=== PATIENT | female | born 1990 | race Two or more races ===

== ENCOUNTER 2022-04-24 13:09 | Outpatient (CLI) | payer OTHER, SELFPAY ==
[2022-04-30 20:54] LABS: Progesterone 17.4 ng/mL (***)
== END 2022-04-24 13:10 | disposition home or self-care (01) ==
PROVIDERS: PCP Advanced Practice Midwife; Visit Provider Advanced Practice Midwife
DX: O20.0 Threatened abortion (principal); Z3A.00 Weeks of gestation of pregnancy not specified
CPT/HCPCS: 36415; 84144; 84702; 86850; 86900; 86901

== ENCOUNTER 2022-04-26 11:49 | Outpatient (CLI) | payer OTHER, SELFPAY | END 2022-04-26 11:50 | disposition home or self-care (01) | LOC: ANHLAB 11:51 | PROVIDERS: PCP Advanced Practice Midwife; Visit Provider Obstetrics & Gynecology | DX: O02.1 Missed abortion (principal) | CPT/HCPCS: 36415; 84702 ==

== ENCOUNTER 2022-04-27 12:39 | Emergency (ER) | payer OTHER, SELFPAY ==
--- NOTE | ~2022-04-27 | US_ITS ---
US OB <=14 wk fetus w TV DATE: 04/27/2022 18:24 INDICATION: Abdominal pain. Exclude ectopic . TECHNIQUE: Real-time imaging and Doppler analysis COMPARISON: None FINDINGS: The uterus measures approximately 8.6 cm height, up to 5.9 cm AP dimension. 7.8 mm uterine cervical nabothian cyst. Approximately 6 x 12.6 x 43 mm fluid collection within the endometrial cavity. There is a normally shaped intrauterine gestational sac measures 2.70 cm, consistent with 5 weeks 3 d ays +/- 3 days estimated gestational age with CLARK of 12/25/2022. Right ovarian approximately 2.7 x 3.8 x 2.2 cm complicated cyst. Left ovary measures 1.8 x 2.1 x 1.1 cm. IMPRESSION: Early intrauterine gestational sac is suggested, 5 weeks 3 days +/- 3 days estimated gest ational age based on sac size. No definite pole or yolk sac are noted Some free fluid is identified within the endometrial cavity Right ovarian cyst Short-term follow-up ultrasound imaging is recommended. Reviewed, dictated and finalized at [facility]. Reviewed, dictated and finalized at [facility]. [facility]SING [facility]ACT[facility] IMPRESSION: Early intrauterine gestational sac is suggested, 5 weeks 3 days +/- 3 days estimated gestational age based on sac size. No definite pole or yolk sac are noted Some free fluid is identified within the endometrial cavity Right ovarian cyst Short-term follow-up ultrasound imaging is recommended.
[2022-04-27 12:41] VITALS: BP 124/73; PULSE 111; RESP 15; TEMP 36.8; O2SAT 100
--- NOTE | 2022-04-27 15:45 | ED.ABDPAIN ---
HPI - Abdominal Pain General Chief Complaint: Abdominal Pain Stated Complaint: abdominal pain, sore throat, Time Seen by Provider: 04/27/22 15:09 Source: patient and family Mode of arrival: ambulatory Limitations: no limitations History of Present Illness HPI narrative: 32 years old white female presents with sore throat that started last night also mid abdominal pain started yesterday. She denies any fever, chills, nausea, vomiting, vaginal bleeding or discharge patient is telling me that she is 4 weeks , she follow-up with [facility]. Patient is 3 para 2 0. Patient also complaining of lower back pain lately. Patient had Tylenol prior to arrival to the emergency room. Related Data Allergies Allergy/AdvReac Type Severity Reaction Status Date / Time No Known Allergies Allergy Verified 04/27/22 15:59 Review of Systems Review of Systems: All systems reviewed & are unremarkable except as noted in HPI and below Exam Narrative: General appearance: Well-developed, well-nourished Skin: Normal color Head: Normocephalic, nontraumatic Eyes: Clear conjunctiva ENT: Oropharynx normal, ears normal, nose normal Neck: Supple, nontender Chest and respiratory: Airway patent, no respiratory distress, no accessory muscle use Heart: Regular rate/rhythm Abdomen: Soft, diffuse abdominal tenderness, left flank tenderness,, no organomegaly, quiet bowel sounds Vascular: Normal peripheral pulses, normal capillary refill. Musculoskeletal: Normal range of motion, nontender back Neurologic: Alert and oriented ?3, SURVEYING TEACHER is normal as tested, no gross motor deficit Course Vital Signs Vital signs: Vital Signs Temperature 36.8 C 04/27/22 12:41 Pulse Rate 111 H 04/27/22 12:41 Respiratory Rate 15 04/27/22 12:41 Blood Pressure 124/73 04/27/22 12:41 Pulse Oximetry 100 04/27/22 12:41 Oxygen Delivery Room Air 04/27/22 12:41 Temperature 36.8 C 04/27/22 12:41 Pulse Rate 113 H 04/27/22 15:56 Respiratory Rate 16 04/27/22 15:56 Blood Pressure 126/83 04/27/22 15:56 Pulse Oximetry 100 04/27/22 15:56 Oxygen Delivery Room Air 04/27/22 12:41 MDM - Abdominal Pain Differential Diagnosis Differential diagnosis: Likely abdominal pain, acute appendicitis, calculus of kidney, constipation, pancreatitis and other ( related symptoms) Lab Data Result diagrams: 04/27/22 15:58 04/27/22 15:58 Labs: Lab Results 04/27/22 04/27/22 04/27/22 Range/Units 15:58 15:58 16:04 WBC 6.4 (4.5-10.0) K/mm3 RBC 4.61 (4.2-5.4) M/mm3 Hgb 13.0 (12.0-15.0) g/dL Hct 39.7 (37.0-47.0) % MCV 86.1 (80-100) fl MCH 28.2 (26-34) pg MCHC 32.7 (32-36) g/dl RDW 14.7 H (11.5-14.5) % Plt Count 139 L (150-375) k/mm3 MPV 12.3 H (7.4-10.4) fl Immature Gran % (Auto) 0.2 (0-0.5) % Neut % (Auto) 71.9 (45.5-73.1) % Lymph % (Auto) 18.9 (18.3-44.2) % [place] % (Auto) 8.2 (2.6-8.5) % Eos % (Auto) 0.3 (0-4.4) % Baso % (Auto) 0.5 (0.2-1.2) % Lymph # (Auto) 1.22 (0.9-3.2) K/mm3 [place] # (Auto) 0.5 (0.1-0.6) K/mm3 Eos # (Auto) 0.0 (0-0.3) K/mm3 Baso # (Auto) 0.0 (0.0-0.1) K/mm3 Abs Immat Gran (auto) 0.01 (0.00-0.031) K/mm3 Absolute Neuts (auto) 4.6 (1.3-6.7) K/mm3 Absolute Nucleated RBC 0.0 (0.0-0.012) K/mm3 Nucleated RBC % 0.0 (0.0-0.2) % Sodium 138 (137-145) mmol/L Potassium 3.4 (3.4-5.0) mmol/L Chloride 103 (98-107) mmol/L Carbon Dioxide 21 L (22-30) mmol/L Anion Gap 14 (8-16) mmol/L BUN 6 L (7-17) mg/dL Creatinine 0.50 L (0.7-1.0) mg/dL Estim Crea
[2022-04-27 15:56] VITALS: BP 126/83; PULSE 113; RESP 16; O2SAT 100
[2022-04-27] MEDS: SODIUM CHLORIDE 0.9% IV 1,000 ML 999 ML IV CONT (16:00)
[2022-04-27] MEDS: ONDANSETRON INJ 4 MG/2 ML VIAL IV PUSH (16:00)
[2022-04-27] MEDS: MORPHINE SULFATE (*CRX) 4 MG/ML INJ IV PUSH (16:01)
[2022-04-27 16:09] LABS: Basophils Percent Auto 0.5 % (0.2-1.2); Eosinophils Percent Auto 0.3 % (0-4.4); Hematocrit 39.7 % (37.0-47.0); Immature Granulocyte Absolute 0.01 K/mm3 (0.00-0.031); Immature Granulocyte Percent A 0.2 % (0-0.5); Lymphocytes Absolute Auto 1.22 K/mm3 (0.9-3.2); Lymphocytes Percent Auto 18.9 % (18.3-44.2); Mean Corpuscular HGB Conc 32.7 g/dl (32-36); Mean Corpuscular Hemoglobin 28.2 pg (26-34); Mean Corpuscular Volume 86.1 fl (80-100); Mean Platelet Volume 12.3 fl (7.4-10.4); Monocytes Absolute Auto 0.5 K/mm3 (0.1-0.6); Monocytes Percent Auto 8.2 % (2.6-8.5); Neutrophils Absolute Auto 4.6 K/mm3 (1.3-6.7); Neutrophils Percent Auto 71.9 % (45.5-73.1); Platelet Count Result 139 k/mm3 (150-375); Red Blood Count 4.61 M/mm3 (4.2-5.4); Red Cell Distribution Width 14.7 % (11.5-14.5); White Blood Count 6.4 K/mm3 (4.5-10.0)
[2022-04-27 16:20] LABS: Alanine Aminotransferase 21 U/L (6-35); Albumin Level 4.7 g/dL (3.5-5.1); Alkaline Phosphatase 53 U/L (38-126); Anion Gap 14 mmol/L (8-16); Aspartate Amino Transferase 25 U/L (14-36); Bilirubin,Total 0.5 mg/dL (0.2-1.3); Blood Urea Nitrogen 6 mg/dL (7-17); Calcium 8.8 mg/dL (8.4-10.2); Carbon Dioxide 21 mmol/L (22-30); Chloride 103 mmol/L (98-107); Estimated CRCL calculation 123 ml/min; Estimated Glomerular Filt Rate > 60; Glucose 89 mg/dL (65-110); Lipase 18 U/L (23-300); Potassium 3.4 mmol/L (3.4-5.0); Sodium 138 mmol/L (137-145)
[2022-04-27 16:31] LABS: Appearance Urine Slightly Cloudy (Clear); Bilirubin Urine 1+ (Negative); Blood Urine 2+ (Negative); Glucose Urine UA Negative (Negative); Ketones Urine 1+ mg/dL (Negative); Leukocyte Esterase Ur Negative LEU/UL (Negative); Nitrate Urine Negative (Negative); Protein Urine Negative (Negative); Specific Grav Ur >= 1.030 (1.001-1.035); Urobilinogen Urine 0.2 mg/dL (<2.0); pH Urine 5.5 (5.0-9.0)
[2022-04-27 16:34] LABS: Bacteria Urine Trace /hpf; Mucus Urine Heavy /lpf; Squamous Epithelial Cell Urine Many /hpf (Few); WBC Urine 0-3 /hpf
[2022-04-27 16:35] LABS: Add Urine Microscopic? YES; Color Urine Dark Yellow (Yellow)
[2022-04-27 16:46] LABS: Influenza A QL RT-PCR Negative (Negative); Influenza B QL RT-PCR Negative (Negative); RSV RNA, RT-PCR Negative (Negative); SARS-CoV-2 RNA PCR Negative
[2022-04-27 17:00] LABS: Monoscreen Negative (Negative); Negative Monotest Control Negative (Negative); Positive Monotest Control Positive (Positive)
[2022-04-27 17:01] VITALS: BP 118/81; PULSE 109; RESP 20; O2SAT 100
[2022-04-27 17:31] VITALS: BP 110/79; PULSE 106; RESP 21; O2SAT 100
[2022-04-27 17:46] VITALS: BP 107/74; PULSE 108; RESP 20; O2SAT 100
[2022-04-27 19:25] VITALS: BP 126/80; PULSE 73; RESP 16; TEMP 36.8; O2SAT 100
== END 2022-04-27 19:27 | disposition home or self-care (01) ==
PROVIDERS: Emergency Provider Emergency Medicine; PCP Advanced Practice Midwife
DX: O26.891 Other specified pregnancy related conditions, first trimester (principal); R10.9 Unspecified abdominal pain; O99.511 Diseases of the respiratory system complicating pregnancy, first trimester; J06.9 Acute upper respiratory infection, unspecified; Z20.822 Contact with and (suspected) exposure to COVID-19; Z3A.11 11 weeks gestation of pregnancy
CPT/HCPCS: 36415; 76801; 76817; 80053; 81001; 83690; 85025; 86308; 87637; 87880; 96361; 96374; 96375; 99284; J2270; J2405; J7030

== ENCOUNTER 2024-12-10 09:26 | Emergency (ER) | payer OTHER, SELFPAY ==
--- NOTE | ~2024-12-10 | US_ITS ---
EXAMINATION: US right upper quadrant DATE: 12/10/2024 11:13 INDICATION: Abdominal pain TECHNIQUE: Multiple grayscale and Doppler ultrasound images of the abdomen were obtained. COMPARISON: None FINDINGS: The pancreatic head and body are normal in appearance. The pancreatic tail is not visualized. Liver has normal echogenicity and contour, with a smooth surface. No liver lesion identified. No intrahepat ic biliary duct dilation suspected. Portal venous flow was seen in the hepatopetal, normal direction and has normal Doppler waveform. Multiple echogenic and shadowing gallstones within the otherwise nor mal-appearing gallbladder with no abnormal dilation or wall thickening. Sonographic Snowden sign was r eported as negative by the wing coverer.Common bile duct measures 4 mm diameter which is normal. /Port ions of the right kidney demonstrates normal echogenicity and contour with no hydronephrosis. The vis ualized proximal inferior vena cava and aorta are normal. IMPRESSION: 1. Cholelithiasis without findings of biliary obstruction or acute cholecystitis. Reviewed, dictated and finalized at location [facility]. IMPRESSION: 1. Cholelithiasis without findings of biliary obstruction or acute cholecystiti s.
[2024-12-10 09:39] VITALS: BP 152/95; PULSE 90; RESP 18; TEMP 36.4; O2SAT 100
[2024-12-10 10:47] VITALS: BP 102/83; O2SAT 99
--- NOTE | 2024-12-10 10:54 | ED.ABDPAIN ---
HPI - Abdominal Pain General Chief Complaint: Abdominal Pain Stated Complaint: ABD Pain Time Seen by Provider: 12/10/24 10:15 History of Present Illness HPI narrative: Patient is a 34-year-old female who presents ER with abdominal pain. Began over last day. Epigastric and radiates to her back both sides. Mild nausea but no vomiting. No dysuria or urinary frequency. No vaginal bleeding or discharge. She is 1 month . Denies fevers chills or sweats. No alleviating factors and is unable to identify any aggravating factors. present and assisting with history. Related Data Allergies Allergy/AdvReac Type Severity Reaction Status Date / Time No Known Allergies Allergy Verified 12/10/24 09:49 Review of Systems Review of Systems: All systems reviewed & are unremarkable except as noted in HPI and below Constitutional: Constitutional: Reports no additional constitutional complaints ENT: Reports system reviewed and no additional complaints, except as documented Cardiovascular: Cardiovascular: Reports no additional cardiovascular complaints Respiratory: Respiratory: Reports no additional respiratory complaints Gastrointestinal: Gastrointestinal: Reports no additional gastrointestinal complaints Genitourinary: Genitourinary: Reports no additional female genitourinary complaints PMFSH Past Medical History Medical History (Updated 12/10/24 @ 12:30 by Sanchez Stewart MD) Healthy female adult Surgical History Surgical History (Updated 12/10/24 @ 10:55 by Sanchez Stewart MD) No pertinent past surgical history Exam Narrative: GENERAL: Uncomfortable-appearing, well-nourished, and in no acute distress. HEAD: Normocephalic, atraumatic. EYES: PERRL and EOMI. ENT: Mucous membranes moist. CHEST: Clear to auscultation. No respiratory distress. HEART: Regular rate and rhythm. Normal peripheral pulses. ABDOMEN: Soft, mild epigastric right upper quadrant discomfort without guarding, nondistended. EXTREMITIES: Normal range of motion. No edema. NEURO: Alert and oriented x3. PSYCH: Normal mood and affect. Course Course Emergency Course: Pain resolved with morphine. Imaging shows gallstones. Mild transaminitis. Recommend low-fat diet and follow up with General surgery outpatient for evaluation for cholecystectomy. Patient family verbalized understanding to treatment plan. Vital Signs Vital signs: Vital Signs Temperature 97.6 F 12/10/24 09:39 Pulse Rate 90 12/10/24 09:39 Respiratory Rate 18 12/10/24 09:39 Blood Pressure 152/95 H 12/10/24 09:39 Pulse Oximetry 100 12/10/24 09:39 Oxygen Delivery Room Air 12/10/24 09:39 Temperature 97.6 F 12/10/24 09:39 Pulse Rate 89 12/10/24 10:58 Respiratory Rate 18 12/10/24 10:58 Blood Pressure 102/83 12/10/24 10:58 Pulse Oximetry 100 12/10/24 10:58 Oxygen Delivery Room Air 12/10/24 09:39 MDM - Abdominal Pain Lab Data 12/10/24 10:53 12/10/24 10:53 Labs: Lab Results 12/10/24 12/10/24 12/10/24 Range/Units 10:36 10:53 10:57 WBC 9.5 (4.5-10.0) K/mm3 RBC 4.91 (4.2-5.4) M/mm3 Hgb 14.6 (12.0-15.0) g/dL Hct 46.0 (37.0-47.0) % MCV 93.7 (80-100) fl MCH 29.7 (26-34) pg MCHC 31.7 L (32-36) g/dl RDW 11.9 (11.5-14.5) % Plt Count 153 (150-375) k/mm3 MPV 12.1 H (7.4-10.4) fl Immature Gran % (Auto) 0.2 (0-0.5) % Neut % (Auto) 77.6 H (45.5-73.1) % Lymph % (Auto) 15.6 L (18.3-44.2) % [place] % (Auto) 5.8 (2.6-8.5) % Eos % (Auto) 0.4 (0-4.4) % Baso % (Auto) 0.4 (0.2-1.2) % Lymph # (Auto) 1.48 (0.9-3.2) K/mm3 [place] # (Auto) 0.6 (0.1-0.6) K/mm3 Eos # (Auto) 0.0 (0-0.3) K/mm3 Baso # (Auto) 0.0 (0.0-0.1) K/mm3 Abs Immat Gran (auto) 0.02 (0.00-0.031) K/mm3 Absolute Neuts (auto) 7.3 H (1.3-6.7) K/mm3 Absolute Nucleated RBC 0.000 (0.0-0.012) K/mm3 Nucleated RBC % 0.0 (0.0-0.2) % Sodium 141 (137-145) mmol/L Potassium 3.6 (3.4-5.0) mmol/L Chloride 109 H (98-107) mmol/L Carbon Dioxide 22 (22-30) mmol/L Anion Gap 10 (4-12) mmol/L BUN 12 D (7-17) mg/dL Creatinine 0.58 L (0.7-1.0) mg/dL Estim Creat Clear Calc 113 ml/min Estimated GFR > 60 (59 - ) Glucose 106 (65-110) mg/dL Calcium 9.0 (8.4-10.2) mg/dL Total Bilirubin 0.6 (0.2-1.3) mg/dL AST 198 H (14-36) U/L ALT 85 H (6-35) U/L Alkaline Phosphatase 89 (38-126) U/L Total Protein 7.3 (6.3-8.2) g/dL Albumin 4.2 (3.5-5.1) g/dL Lipase 29 (23-300) U/L Urine Color Yellow (Yellow) Urine Appearance Clear (Clear) Urine pH 6.0 (5.0-9.0) Ur Specific [place] 1.021 (1.001-1.035) Urine Protein Negative (Negative) mg/dL Urine Glucose (UA) Negative (Negative) mg/dL Urine Ketones Negative (Negative) mg/dL Ur Blood (Man) 1+ H (Negative) Urine Nitrate Negative (Negative) Urine Bilirubin Negative (Negative) Urine Urobilinogen 0.2 (<2.0) mg/dL Leukocyte Esterase Rfl 1+ H (Negative) CLIF/UL Urine RBC 6-10 H (0-2) /hpf Urine WBC 6-10 H (0-3) /hpf Ur Squamous Epith Cells None seen (Few) /hpf Urine Bacteria None seen /hpf Urine Casts 0-2 POC Urine HCG, Qual Negative (Negative) Imaging Data Radiologist's impression: ITS Impressions Upper Quadrant Ultrasound 12/10/24 11:14 IMPRESSION: 1. Cholelithiasis without findings of biliary obstruction or acute cholecystitis. Discharge Plan Discharge Clinical Impression: Cholelithiasis Patient Disposition: Home Condition: Stable Instructions: Gallstones (ED), Low Fat Diet (ED) Additional Instructions: Return to the emergency department if you develop severe abdominal pain, severe nausea and vomiting to the point where you are unable to keep down fluids, if you develop chest pain or difficulty breathing, blood in your stool, dizziness or fainting, or if you develop any other new or concerning symptoms as these could be signs of more serious medical illness. Try to stay well hydrated. Take Tylenol or ibuprofen for pain. Eat a low-fat diet. Follow up with General surgery. Patient Language: Other Prescriptions: New ondansetron 4 mg tablet,disintegrating 4 mg PO Q6H PRN (Reason: nausea and vomiting) Qty: 10 0RF Follow-up/Referrals: Cristel,Johanna Beckham CNM [Primary Care Provider] - Frantz Robertson DO [Physician] - 1 Week
[2024-12-10 10:58] VITALS: BP 102/83; PULSE 89; RESP 18; O2SAT 100
[2024-12-10 11:01] VITALS: BP 132/89; O2SAT 99
[2024-12-10 11:05] LABS: Basophils Percent Auto 0.4 % (0.2-1.2); Eosinophils Percent Auto 0.4 % (0-4.4); Hemoglobin 14.6 g/dL (12.0-15.0); Immature Granulocyte Absolute 0.02 K/mm3 (0.00-0.031); Immature Granulocyte Percent A 0.2 % (0-0.5); Lymphocytes Absolute Auto 1.48 K/mm3 (0.9-3.2); Lymphocytes Percent Auto 15.6 % (18.3-44.2); Mean Corpuscular HGB Conc 31.7 g/dl (32-36); Mean Corpuscular Hemoglobin 29.7 pg (26-34); Mean Corpuscular Volume 93.7 fl (80-100); Mean Platelet Volume 12.1 fl (7.4-10.4); Monocytes Absolute Auto 0.6 K/mm3 (0.1-0.6); Monocytes Percent Auto 5.8 % (2.6-8.5); Neutrophils Absolute Auto 7.3 K/mm3 (1.3-6.7); Neutrophils Percent Auto 77.6 % (45.5-73.1); Platelet Count Result 153 k/mm3 (150-375); Red Blood Count 4.91 M/mm3 (4.2-5.4); Red Cell Distribution Width 11.9 % (11.5-14.5); White Blood Count 9.5 K/mm3 (4.5-10.0)
[2024-12-10 11:10] LABS: BEDSIDEPREGUCG Negative (Negative)
[2024-12-10 11:13] LABS: Add Urine Microscopic? YES; Appearance Urine Clear (Clear); Bacteria Urine None Seen /hpf; Bilirubin Urine Negative (Negative); Blood Urine 1+ (Negative); Color Urine Yellow (Yellow); Glucose Urine UA Negative (Negative); Ketones Urine Negative (Negative); Leukocyte Esterase Ur 1+ LEU/UL (Negative); Nitrate Urine Negative (Negative); Non Pathogenic Casts 0-2; Protein Urine Negative (Negative); Specific Grav Ur 1.021 (1.001-1.035); Squamous Epithelial Cell Urine None Seen /hpf (Few); Urobilinogen Urine 0.2 mg/dL (<2.0)
[2024-12-10 11:24] LABS: Alanine Aminotransferase 85 U/L (6-35); Albumin Level 4.2 g/dL (3.5-5.1); Alkaline Phosphatase 89 U/L (38-126); Anion Gap 10 mmol/L (4-12); Aspartate Amino Transferase 198 U/L (14-36); Bilirubin,Total 0.6 mg/dL (0.2-1.3); Blood Urea Nitrogen 12 mg/dL (7-17); Carbon Dioxide 22 mmol/L (22-30); Chloride 109 mmol/L (98-107); Estimated CRCL calculation 113 ml/min; Estimated Glomerular Filt Rate > 60; Glucose 106 mg/dL (65-110); Lipase 29 U/L (23-300); Potassium 3.6 mmol/L (3.4-5.0); Sodium 141 mmol/L (137-145); Total Protein 7.3 g/dL (6.3-8.2)
[2024-12-10] MEDS: SODIUM CHLORIDE 0.9% IV 1,000 ML 999 ML IV CONT (11:25)
[2024-12-10] MEDS: MORPHINE SULFATE (*CRX) 4 MG/ML INJ 2 MG IV PUSH (11:26)
[2024-12-10] MEDS: ONDANSETRON INJ 4 MG/2 ML VIAL IV PUSH (11:26)
== END 2024-12-10 12:46 | disposition home or self-care (01) ==
PROVIDERS: Emergency Provider Emergency Medicine; PCP Advanced Practice Midwife
DX: K80.20 Calculus of gallbladder without cholecystitis without obstruction (principal)
CPT/HCPCS: 36415; 76705; 80053; 81001; 81025; 83690; 85025; 87086; 96361; 96374; 96375; 99284; J2270; J2405; J7030

== ENCOUNTER 2025-01-23 00:21 | Day surgery (SDC) | payer OTHER, SELFPAY ==
[2025-01-20 14:56] VITALS: BMI 29.2
--- NOTE | 2025-01-20 15:05 | PC.NURSE ---
Report to the Outpatient Waiting Room, entrance under the green pavilion located off [facility], at time _1200_ on date _[phone]_. Planned Procedure Time: _2pm_.? Time changes happen often and if your time is changed the preop area will call you the afternoon before. - You and your visitor will be asked to self-screen and do not enter if you have any COVID symptoms. Please call surgeon if you need to reschedule. - A mask is optional within the hospital at this time. Patients may have clear liquids (water, carbonated beverages, clear teas, apple juice) until 3 hours prior to surgery with a maximum of 20 ounces. - No food from midnight until time of surgery and no smoking, or chewing tobacco (or any form of nicotine). No chewing gum, candy or mints. Take only the following medications with a SIP of water on the morning of surgery: ___Amoxicillin____ DO NOT STOP ANY OF YOUR OTHER PRESCRIPTION MEDICATIONS PRIOR TO SURGERY EXCEPT THE FOLLOWING Hold all vitamins and supplements for 3 days per anesthesiologist. Medications to discontinue per physician Date to take last dose Please no make-up, nail amharic, hairspray, perfume, deodorant, or body powder the day of surgery.? No jewelry (including any body piercings) or valuables the day of surgery, leave them at home.? Please take a shower or bath the night before, or the morning of, surgery with an antibacterial soap.? Wear comfortable, loose fitting clothing.? - Jewelry must be removed prior to entering the operating room.? Rings and piercings that are not removed may be cut off. - The hospital will not accept responsibility for valuables.? - Please leave all valuables, including medications, at home the day of surgery. If you are going home after surgery, a licensed recycler forklift driver truck driver must drive you home.? - NO public transportation without another adult if you receive anesthesia. - We recommend that an adult stay with you for 24 hours following discharge. - We also recommend that you do not drive, make important decision, drink alcoholic beverages, or take any drugs that were not prescribed by your health care provider for at least 24 hours after your discharge time. Follow any additional instructions given to you from your surgeon. Telephone instructions given to __Leoam/husband__and asked if any additional questions and then verbalized understanding. Patient advised to call surgeon office or pre surgery nurse liaison [phone] if any additional questions.
[2025-01-23] VITALS (9 sets, daily range): BP systolic 121–137; BP diastolic 79–93; PULSE 85–109; RESP 14–20; TEMP 36.6–36.8; O2SAT 95–99; BMI 30.7
--- OUTSIDE RECORDS SUMMARY | 2025-01-23 00:24 | XMS_ITS | Clinical Summary ---
Author Organization [facility] Virtual Care Address [address] [place] [phone] Phone Care Team Providers Care Electronics Research Engineer Name Role Phone Unknown, Notinfile Primary Care Provider Unavail able Allergies No known active allergies Medications albuterol HFA (PROVENTIL HFA,VENTOLIN HFA,PROAIR HFA) 90 mcg/actuation inhalerIndicati ons:Bronchospas tic Pulmonary Disease Inhale 1-2 puffs every 6 (six) hours as needed for wheezing 1 each 1 Active azithromycin (Zithromax Z-Roebrt) 250 mg tablet Take 1 tablet (250 mg total) by mouth daily Take first 2 tablets together, then 1 every day until finished. 6 tablet 1 Active dexAMETHasone (DECADRON) 6 mg tablet Take 1 tablet (6 mg total) by mouth daily with breakfast 2 tablet 1 Active naproxen (NAPROSYN) 500 mg tablet Take 1 tablet (500 mg total) by mouth 2 (two) times a day with meals 30 tablet 3 Active Social History Tobacco Use Types Packs/Day Years Used Date Smoking Tobacco: Never Alcohol Use Standard Drinks/Week Comments Never 0 (1 standard drink = 0.6 oz pur e alcohol) Personal Safety Answer Date Recorded Have you ever been in or are you currently in a harmful physical or emotional relationship or is someone making you feel afraid or unsafe? 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 Gender Identity Not on file Sexual Orientation Not on file Obstetrics History Last Filed Vital Signs Vital Sign Reading Time Taken Comments Blood Pressure 114/81 03/28/2024 9:51 PM CDT Pulse 93 03/28/2024 9:51 PM CDT Temperature 36.6 C (97.9 F) 03/28/2024 7:47 PM CDT Respiratory Rate 18 03/28/2024 9:51 PM CDT Oxygen Saturation 100% 03/28/2024 9:51 PM CDT Inhaled Oxygen Concentration - - Weight 84.1 kg (185 lb 6.5 oz) 03/28/2024 7:47 P M CDT Height 162.6 cm (5' 4) 03/28/2024 7:47 PM CDT Body Mass Index 31.83 03/28/2024 7:47 PM CDT Plan of Treatment Health Maintenance Due Date Last Done Comments Cervical Cancer Screening 1992 Depression Screening 1992 Hepatitis C Screening 1992 DTaP/Tdap/Td Vaccine (1 - Tdap) 02/12/2003 Varicella Vaccines (1 of 2 - 13+ 2-dose series) 02/12/2005 Hepatitis B Screening 02/12/2010 Regular Well Visit/Exam 18-64 02/12/2010 HPV Vaccines (1 - 3-dose SCD M series) 02/12/2019 Influenza Vaccine (#1) 2025 Pneumococcal vaccine <65 Aged Out No longer eligible based on patient's age to complete this topic Insurance [facility] Care Teams Electronics Research Engineer Relationship Specialty Start Date End Date Unknown, Notinfile PCP - General 03/06/23
--- OUTSIDE RECORDS SUMMARY | 2025-01-23 00:24 | XMS_ITS | Clinical Summary ---
Author Organization [facility] Address [facility] [place] [address] Care Team Providers Care Radiographer Mammographer Name Role Phone None, Provider MD Primary Care Provider Unavaila ble Allergies No known active allergies Medications 28-0.8 MG tablet Take 1 tablet by mouth daily. Active ferrous fumarate 324 mg 324 (106 Fe) MG Tab tablet Take 1 tablet by mouth daily. 30 tablet 12/30/2022 Active calcium carbonate (TUMS) 500 MG chewable tablet Chew 1 tablet (500 mg total) by mouth daily. Active docusate sodium (COLACE) 100 MG capsule Take 1 capsule (100 mg total) by mouth 2 (two) times daily as needed for Constipation . 20 capsule 11/11/2024 Active ibuprofen (MOTRIN) 600 MG tablet Take 1 tablet (600 mg total) by mouth every 6 (six) hours as needed. 30 tablet 11/11/2024 Active Active Problems Problem Noted Date Diagnosed Date Vaginal delivery ([facility]) 11/11/2024 ([facility]) 11/09/2024 Resolved Problems Problem Noted Date Diagnosed Date Resolved Date Vaginal delivery ([facility]) 12/30/2022 0 11/11/2024 Normal course ([facility]) 12/30/2022 11/11/2024 ([facility]) 12/28/2022 12/31/19 23 40 weeks gestation of ([facility]) 12/28/2022 12/30/2022 Encounters Date Type Department Care Team Description 11/10/2024 2:41 AM CDT Anesthesia Event [facility] Labor [place] [address] Evy Bui CRNA 11/10/2024 Travel 11/09/2024 9:55 PM CDT - 11/12/2024 2:50 PM T [facility] En[facility] [place] [address] Sanjana Frias MD (MIOL) Discharge Disposition: Home or Self Care (Routine Discharge) 11/05/2024 7:53 AM CDT - 11/05/2024 9:14 AM [facility][NOTE 3] Hospital Encounter [facility] [address] Glynn Mitchell MD (MIOL) Discharge Disposition: Home or Self Care (Routine Discharge) 11/05/2024 Travel from Last 3 Months Social History Tobacco Use Types Packs/Day Years Used Date Smoking Tobacco: Never Smokeless Tobacco: Never Alcohol Use Standard Drinks/Week Comments Never 0 (1 standard drink = 0.6 oz pur e alcohol) B1300 Health Literacy Answer Date Recor ded How often do you need to hav e someone help you when you read instructions, pamphlets, or other written material from your doctor or pharmacy? Always 11/09/2024 [facility] Utilities Answer Date Recorded In the past 12 months has [facility] [employer], gas, oil, or water Conversion Sound threatened to shut off services in your home? No 11/09/2024 Humiliation, Afraid, Rape, and Kick questionnair e Answer Date Recorded Within the last year, have y ou been afraid of your partner or ex-partner? No 11/09/2024 Within the last year, have y ou been humiliated or emotionally abused in other ways by your partner or ex-partner? No Within the last year, have y ou been kicked, hit, slapped, or otherwise physically hurt by your partner or ex-partner? No 11/09/2024 Within the last year, have y ou been raped or forced to have any kind of sexual activity by your partner or ex-partner? No 11/09/2024 Social Connection and Isolat ion Panel [NHANES] Answer Date Recorded In a typical week, how many times do you talk on the phone with family, friends, or neighbors? More than three times a week 11/09/2024 How often do you get togethe r with friends or relatives? More than three times a week 11/09/2024 How often do you attend chur or jehovah's witness services? More than 4 times per year 11/09/2024 Do you belong to any clubs o r organizations such as methodist groups, unions, fraternal or athletic groups, or school groups? No 11/09/2024 How often do you attend meet ings of the clubs or organizations you belong to? Never 11/09/2024 Are you , , di vorced, , never , or living with a partner? 11/09/2024 AUDIT-C Answer Date Recorded Q1: How often do you have a drink containing alcohol? Never 11/09/2024 Q2: How many drinks containi ng alcohol do you have on a typical day when you are drinking? Patient does not drink Q3: How often do you have si x or more drinks on one occasion? Never 11/09/2024 Overall Financial Resource Strain (CARDIA) Answe r Date Recorded How hard is it for you to pa y for the very basics like food, housing, medical care, and heating? Not hard at all 11/09/2024 PHQ-2 Answer Date Recorded Patient Health Questionnaire-2 Score 0 11/09/2024 [facility] - Occupational Stress Questionnaire Answer Date Recorded Do you feel stress - tense, restless, nervous, or anxious, or unable to sleep at night because your mind is troubled all the time - these days? Not at all 11/09/2024 Exercise Vital Sign Answer Date Recorde d On average, how many days pe r week do you engage in moderate to strenuous exercise (like a brisk walk)? 2 days 11/09/2024 On average, how many minutes do you engage in exercise at this level? 60 min 11/09/2024 Hunger Vital Sign Answer Date Recorded Within the past 12 months, y ou worried that your food would run out before you got the money to buy more. Never true 11/10/19 25 Within the past 12 months, t he food you bought just didn't last and you didn't have money to get more. Never true 11/09/2024 PRAPARE - Transportation Answer Date Re corded In the past 12 months, has l ack of transportation kept you from medical appointments or from getting medications? No 10/14 In the past 12 months, has l ack of transportation kept you from meetings, work, or from getting things needed for daily living? No 11/09/2024 Housing Stability Vital Sign Answer Luciano e Recorded In the last 12 months, was t here a time when you were not able to pay the mortgage or rent on time? No 12/28/2022 In the last 12 months, how many places have you lived? 1 12/28/2022 In the last 12 months, was t here a time when you did not have a steady place to sleep or slept in a chcf (including now)? No 12/28/2022 Housing Stability Vital Sign Answer Luciano e Recorded In the last 12 months, was t here a time when you were not able to pay the mortgage or rent on time? No 11/09/2024 In the past 12 months, how m any times have you moved where you were living? 1 11/09/2024 At any time in the past 12 m [facility], were you homeless or living in a chcf (including now)? No 11/09/2024 Depression Answer Date Recor ded Last EPDS Total Score 2 11/11/2024 Last EPDS Self Harm Result Sometimes 11/11 Comments No Sex and Gender Information Value Date Recorded Sex Assigned at Female 11/05/2024 8:50 AM CDT Legal Sex Female 6:20 AM CDT Gender Identity Not on file Sexual Orientation Not on file Last Filed Vital Signs Vital Sign Reading Time Taken Comments Blood Pressure 118/86 11/12/2024 7:38 AM CDT Pulse 78 11/12/2024 7:38 AM CDT Temperature 36.7 C (98.1 F) 11/12/2024 7:38 AM CDT Respiratory Rate 18 11/12/2024 7:38 AM CDT Oxygen Saturation 100% 11/12/2024 7:38 AM CDT Inhaled Oxygen Concentration - - Weight 86.2 kg (190 lb) 11/09/2024 10:21 PM CDT Height 165.1 cm (5' 5) 11/09/2024 10:21 PM CDT Body Mass Index 31.62 11/09/2024 10:21 PM CDT Plan of Treatment Health Maintenance Due Date Last Done Comments Cervical Cancer Screening Pa p Smear (Age 30 to 64) Every 3 Years 1992 Annual Physical 02/12/1995 DTaP, Tdap and Td Vaccines ( 1 - Tdap) 02/12/2011 Hepatitis B Vaccines (1 of 3 - 19+ 3-dose series) 02/12/2011 HPV Vaccines (1 - 3-dose SCD M series) 02/12/2019 Cervical Cancer Screening Pa p with HPV Testing (Age 30 to 64) Every 5 Years 02/12/2022 Cervical Cancer Screening wi th HPV 02/12/2022 COVID-19 Vaccine ( - 2023-2 5 season) 2024 Hepatitis C Completed 06/24/2022, 06/24/2022 Meningococcal B Vaccine Aged Out No l onger eligible based on patient's age to complete this topic Meningococcal Vaccine Aged Out No silvina jaqueline eligible based on patient's age to complete this topic Pneumococcal Vaccine: Pediatrics (0 to 5 Years) and At-Risk Patients (6 to 49 Years) Aged Out No longer eligible b ased on patient's age to complete this topic RSV Immunizations Under 20 Months Aged Out No longer eligible b ased on patient's age to complete this topic Procedures Procedure Name Priority Date/Time Associated Diagnosis Comments HEMOGLOBIN AND HEMATOCRIT Routine 11/11/2024 6:20 AM CDT LABOR EPIDURAL Routine 11/10/2024 3:12 AM CDT TYPE & SCREEN STAT 11/09/2024 11:00 PM CDT ([facility]) SYPHILIS AB (DIAGNOSTIC) WITH CASCADING REFLEX STAT 11/09/2024 11:00 PM CDT ([facility]) DRUG SCREEN RAPID STAT 11/09/2024 11: 00 PM CDT ([facility]) HC URINALYSIS AUTO W/O MICRO STAT 11/09/2024 11:00 PM CDT ([facility]) CBC W/DIFF AUTOMATED STAT 11/09/2024 11:00 PM CDT ([facility]) CBC W/DIFF AUTOMATED STAT 11/05/2024 8:13 AM CDT ([facility]) from Last 3 Months Results * (ABNORMAL) Hemoglobin and Hematocrit (11/11/2024 6:20 AM CDT) HGB 11.8(L) 12.0 - 16.0 G/DL 11/11/2024 6:36 AM CDT [facility] HCT 35.0(L) 38.0 - 48.0 % 11/11/2024 6:36 AM CDT [facility] 11/11/2024 6:20 AM CDT Sanjana Frias MD LABORATORY Final Result [facility] [address] [place] [address], * Labor Epidural (11/10/2024 3:12 AM CDT) Narrative Evy Bui CRNA - 11/10/2024 3:12 AM CDT Evy Bui CRNA 11/10/2024 3:14 AM Epidural: Procedure Start: 11/10/2024 2:34 AM Procedure Stop: 11/10/2024 2:41 AM Patient location during procedure: OB Reason for block: labor epidural Preanesthetic Checklist Completed: patient identified, consent, pre-op evaluation, timeout performed, IV checked, risks and benefits discussed and monitors and equipment checked Procedure Information: Patient position: sitting Prep: site prepped and draped and chlorhexidine Patient monitoring: continuous pulse oximetry and non-invasive blood pressure Approach: midline Location: L3-L4 Injection technique: CA saline Placement Location: lumbar Ultrasound-guided Placement: No Needle and Catheter: MRI Compatible: MRI UNSAFE ([id number]) Needle type: Tuohy Needle gauge: 17 G Needle length: 3.5 in Needle insertion depth: 6 cm Catheter type: side hole Catheter size: 19 G Catheter at skin depth: 11 cm Test dose: negative and lidocaine 1.5% with epinephrine 1-to-200,000 Needle attempts: 1 Assessment Sensory level: T10 Additional Notes LOT: [id number] EXP: 2025-09-12 Evy Bui CRNA ME ANESTHESIA Final Result * SYPHILIS IGG/IGM AB (11/09/2024 11:00 PM CDT) Pathologist [facility] [place] SYPHILIS IGG IGM AB NON-REACTI VE NON-REACTI VE 11/10/2024 4:36 AM CDT [facility] Comment: No serologic evidence of syphilis. No follow-up necessary unless clinically indicated. 11/09/2024 11:0 0 PM CDT Sanjana Frias MD LABORATORY Final Result [facility] [address] [place] [id number], * DRUG SCREEN RAPID (11/09/2024 11:00 PM CDT) Pathologist [facility] [place] AMPHETAMINE (U) NEGATIVE NEGATIVE 9:05 PM CDT [facility] BARBITURATES SCREEN (U) NEGATIVE NEGATIVE 11/10/2024 9:05 PM CDT [facility] BENZODIAZEPINES SCREEN (U) NEGATIVE NEGATIVE 11/10/2024 9:05 PM CDT [facility] CANNABINOIDS SCREEN (U) NEGATIVE NEGATIVE 11/10/2024 9:05 PM CDT [facility] COCAINE METABOLITES (U) NEGATIVE NEGATIVE 11/10/2024 9:05 PM CDT [facility] METHADONE (U) NEGATIVE NEGATIVE 11/10/2024 9:05 PM CDT [facility] OPIATE SCREEN (U) NEGATIVE NEGATIVE 025 9:05 PM CDT [facility] PHENCYCLIDINE PCP (U) NEGATIVE NEGATIVE 11/10/2024 9:05 PM CDT [facility] Comment: NOTE: RESULTS OF THIS DRUG SCREEN SHOULD BE USED FOR MEDICAL PURPOSES ONLY AND NOT FOR LEGAL OR EMPLOYMENT PURPOSES. POSITIVE RESULTS ARE NOT CONFIRMED. MEDICATIONS CONTAINING EPHEDRINE MAY CAUSE FALSE POSITIVE AMPHETAMINE CALL [phone], LAB, TO REQUEST CONFIRMATION TESTING. IF CREATININE IS <40 mg/dL. RECOLLECTION IS SUGGESTED. AMPHETAMINE- 500 NG/ML BARBITURATE- 200 NG/ML BENZODIAZEPINES- 200 NG/ML THC- 50 NG/ML COCAINE- 150 NG/ML METHADONE- 300 NG/ML OPIATE- 300 MG/ML PCP- 25 NG/ML CREATININE (U) 104.0 28 - 217 MG/DL 11/10/2024 9:05 PM CDT [facility] URINE SPECIMEN / Unknown 11/09/2024 11:00 PM CDT Sanjana Frias MD URINE ORDERABLES Final Resul t Performing Organization Address City/[facility]/ZIP Co de Phone Number [facility] [address] [place] [id number], * TYPE & SCREEN (11/09/2024 11:00 PM CDT) ABO/RH O POSITIVE 11/10/2024 12:59 AM CDT [facility] ANTIBODY SCREEN NEGATIVE 11/10/2024 12:59 AM CDT [facility] SAMPLE EXPIRATION 11/12/2024,2 359 11/10/2024 12:59 AM CDT [facility] 11/09/2024 11:0 0 PM CDT Sanjana Frias MD BLOOD BANK TEST ORDERABLES F inal Result [facility] [address] [place] [address], [place] [phone] * URINALYSIS (11/09/2024 11:00 PM CDT) SPECIMEN TYPE URINE CLEAN CATCH 11/10/2024 7:01 PM CDT [facility] COLOR (U) YELLOW 11/10/2024 8:57 PM CDT [facility] TRANSPARENCY TURBID 11/10/2024 8:57 PM CDT [facility] SPECIFIC GRAVITY (U) 1.019 1.001 - 1.030 11/10/2024 8:57 PM CDT [facility] U PH 7.5 5.0 - 9.0 11/10/2024 8:57 PM CDT [facility] LEUKOCYTES (U) NEGATIVE NEGATIVE 11/10/2024 8:57 PM CDT [facility] NITRITES NEGATIVE NEGATIVE 11/10/2024 8:57 PM CDT [facility] PROTEIN RANDOM (U) NEGATIVE <30 MG/DL 11/10/2024 8:57 PM CDT [facility] GLUCOSE (U) NORMAL NORMAL MG/DL 11/10/2024 8:57 PM CDT [facility] KETONES MG/DL (U) NEGATIVE NEGATIVE MG/DL 11/10/2024 8:57 PM CDT [facility] UROBILINOGEN NORMAL NORMAL MG/DL 11/10/2024 8:57 PM CDT [facility] BILIRUBIN (U) NEGATIVE NEGATIVE MG/DL 11/10/2024 8:57 PM CDT [facility] BLOOD (U) NEGATIVE NEGATIVE 11/10/2024 8:57 PM CDT [facility] URINE SPECIMEN OBTAINED BY CLEAN CATCH PROCEDURE / Unknown 11/09/2024 11:00 PM CDT us Sanjana Frias MD URINE ORDERABLES Final Resul t [facility] [address] [place] [address], [place] [phone] * (ABNORMAL) CBC W/DIFF AUTOMATED (11/09/2024 11:00 PM CDT) Only the most recent of2 resultswithin the time period is included. WBC 5.58 4.5 - 11.0 x10'3/uL 11/09/2024 11:59 PM CDT [facility] RBC 3.98(L) 4.20 - 5.40 x10'6/uL 11/09/2024 11:59 PM CDT [facility] HGB 12.3 12.0 - 16.0 G/DL 11/09/2024 11:59 PM CDT [facility] HCT 36.8(L) 38.0 - 48.0 % 11/09/2024 11:59 PM CDT [facility] MCV 92.5 81.0 - 99.0 FL 11/09/2024 11:59 PM CDT [facility] MCH 30.9 27.0 - 31.0 PG 11/09/2024 11:59 PM CDT [facility] MCHC 33.4 32.0 - 36.0 G/DL 11/09/2024 11:59 PM CDT [facility] RDW 13.7 11.5 - 14.5 % 11/09/2024 11:59 PM CDT [facility] PLT 113(L) 130 - 400 x10'3/uL 11/09/2024 11:59 PM CDT [facility] MPV 13.7(H) 9.3 - 12.2 FL 11/09/2024 11:59 PM CDT [facility] DIFFERENTIAL TYPE AUTOMATED DIFFERENTIAL 11/09/2024 11:59 PM CDT [facility] NEUTROPHILS % 61.4 % 11/09/2024 11:59 PM CDT [facility] LYMPHOCYTES % 29.9 % 11/09/2024 11:59 PM CDT [facility] MONOCYTES % 7.9 % 11/09/2024 11:59 PM CDT [facility] EOSINOPHILS 0.2 % 11/09/2024 11:59 PM CDT [facility] BASOPHILS 0.2 % 11/09/2024 11:59 PM CDT [facility] IMMATURE GRANS % 0.4 % 11/10/19 11:59 PM CDT [facility] ABS. NEUTROPHILS 3.43 1.80 - 7.70 x10'3/uL 11/09/2024 11:59 PM CDT [facility] ABS. LYMPHOCYTES 1.67 1.00 - 4.80 x10'3/uL 11/09/2024 11:59 PM CDT [facility] ABS. MONOCYTES 0.44 0.24 - 0.86 x10'3/uL 11/09/2024 11:59 PM CDT [facility] ABS. EOSINOPHILS 0.01(L) 0.04 - 0.36 x10'3/uL 11/09/2024 11:59 PM CDT [facility] ABS. BASOPHILS 0.01 0.01 - 0.08 x10'3/uL 11/09/2024 11:59 PM CDT [facility] ABS. IMMATURE GRANULOCYTES 0.02 0.00 - 0.49 x10'3/uL 11/09/2024 11:59 PM CDT [facility] 11/09/2024 11:0 0 PM CDT us Sanjana Frias MD LABORATORY Final Result [facility] [address] [place] [address], [place] [phone] from Last 3 Months Insurance [employer] Advance Directives * Full Code (Latest Code Status on File) Date Activated Date Inactivated Comments 11/09/2024 10:02 PM 11/12/2024 6:24 PM * Full Code Date Activated Date Inactivated Comments 12/28/2022 9:08 AM 12/30/2022 3:40 PM Care Teams Radiographer Mammographer Relationship Specialty Start Date End Date None, Provider, PCP - General UNKNOWN PHYSICIAN SPECIALTY 12/28/22
[2025-01-23] MEDS: LACTATED RINGERS 1,000 ML 30 ML IV CONT ×2 (13:50→16:37)
[2025-01-23] MEDS: KETOROLAC 15 MG/ML VIAL (*BKC) IV PUSH (13:55)
[2025-01-23] MEDS: ACETAMINOPHEN 500 MG TABLET 1000 MG PO (13:55)
[2025-01-23 13:56] LABS: Amylase 70 U/L (30-110)
--- NOTE | 2025-01-23 14:01 | WPDHPUPDATE1 ---
History and Physical Update Update Date/Time: 01/23/25 14:01 History and Physical has been reviewed, including an updated exam of the patient. There are NO changes in the patient's condition. Risks, benefits, and alternatives have been discussed and questions answered. Patient agrees to proceed with procedure.
--- NOTE | 2025-01-23 14:02 | P.HP_ITS ---
H&P: HPI History of Present Illness Date/Time: 01/23/25 14:02 Chief Complaint: symptomatic cholelithiasis Narrative: 34 yo woman presents for laparoscopic cholecystectomy. She reports no changes since last seen in office. Review of Systems Review of Systems: All systems reviewed & are unremarkable except as noted in HPI and below Constitutional: Constitutional: Denies chills, Denies fever(s), Denies headache(s) and Denies weight loss Eyes: Eyes: Denies change in vision ENT: Denies dizziness, Denies headache(s), Denies neck mass and Denies throat swelling Cardiovascular: Cardiovascular: Denies chest pain, Denies lightheadedness and Denies dyspnea Respiratory: Respiratory: Denies cough, Denies dyspnea and Denies wheezing Gastrointestinal: Gastrointestinal: Denies abdominal pain, Denies change in bowel habits, Denies nausea and Denies vomiting Genitourinary: Genitourinary: Denies hematuria and Denies dysuria Musculoskeletal: Musculoskeletal: Reports as per HPI Integumentary/Breasts: Skin/Breast: Reports as per HPI Neurologic: Denies dizziness and Denies headache(s) Allergic/Immunologic: Allergic/Immunologic: Denies throat swelling and Denies wheezing [facility] Past Medical History Medical History Healthy female adult Surgical History Surgical History No pertinent past surgical history Social History Social History Smoking status: Never smoker Substance use: never Substance use type: does not use Living arrangements: with family Spiritual care concerns: No Meds Home Medications and Allergies Home Medications ?Medication ?Instructions ?Recorded ?Confirmed ?Type amoxicillin 500 mg capsule 500 mg PO Q8H 01/20/25 01/20/25 History Allergies Allergy/AdvReac Type Severity Reaction Status Date / Time No Known Allergies Allergy Verified 01/20/25 14:54 Exam Const: General: no acute distress and alert Orientation/consciousness: patient oriented x3 HENMT: Head: normocephalic and atraumatic Ears: hearing grossly normal bilaterally Face/Nose/Sinus: Normal nares present Mouth: Yes Normal oral and palatal mucosa present Eyes: Periorbital: periorbital findings normal Sclera: sclerae normal EOM: EOMs intact bilaterally Neck: Neck: normal visual inspection, no lymphadenopathy and trachea midline Chest: Chest palpation & inspection: normal inspection of the chest Resp: Effort & Inspection: normal respiratory effort Auscultation: clear to auscultation bilaterally Cardio: Jugular venous distension: no JVD Rate: regular rate Rhythm: regular rhythm Heart sounds: S1 normal heart sound present and S2 normal heart sound present Peripheral pulses: Peripheral pulses 2+ throughout GI: Inspection: normal to inspection GI Palp: Yes Soft to palpation, No Tenderness to palpation present (GI), No Guarding due to palpation present (GI) and No Rebound tenderness present Percussion: Yes normal to percussion Auscultation: normal bowel sounds : General: Yes no CVA tenderness Back/Spine/Pelvis: Back: no CVA tenderness Neuro: General: patient oriented x3, no focal motor deficits and CN's II-XI intact bilaterally Cognition (Neuro): normal cognition Speech: normal speech Motor exam (neuro): 5/5 motor strength present throughout Extrem: General: capillary refill normal and no clubbing, cyanosis or edema Assessment and Plan Assessment and plan (1) Symptomatic cholelithiasis: Code(s): K80.20 - Calculus of gallbladder without cholecystitis without obstruction Status: Acute Assessment and Plan: I have recommended laparoscopic cholecystectomy, possible open. I have discussed the procedure, risks, benefits, and alternatives with the patient. All questions answered. No changes since last seen in office.
--- NOTE | 2025-01-23 14:23 | P.PNAN_ITS ---
Anes - Initial Pre Proc Eval Procedure: Operation Date: 01/23/25 14:00 Proposed Procedures p Laparoscopic Cholecystectomy Possible Open - Frantz Robertson DO Date/Time: 01/23/25 14:23 Surgeon: Frantz Robertson DO Pre Op Diagnosis: symptomatic cholelithiasis Patient Data Age: 34 Gender: F Height: 1.63 m Weight: 81.1 kg Last Vital Signs Temp 97.8 F 01/23/25 12:45 Pulse 91 01/23/25 12:45 Resp 14 01/23/25 12:45 BP 134/90 01/23/25 12:45 Pulse Ox 99 01/23/25 12:45 O2 Del Method Room Air 01/23/25 12:45 Allergies Allergy/AdvReac Type Severity Reaction Status Date / Time No Known Allergies Allergy Verified 01/20/25 14:54 Home Medications ?Medication ?Instructions ?Recorded ?Confirmed ?Type amoxicillin 500 mg capsule 500 mg PO Q8H 01/20/25 01/20/25 History Laboratory Tests 01/23/25 13:20 Amylase 70 U/L (30-110) Patient hx anesthesia problems: none Family hx anesthesia problems: none Results Review: All pre-operative results and documents have been reviewed as part of the pre- operative evaluation. [facility] Past Medical History Medical History Healthy female adult Surgical History Surgical History No pertinent past surgical history Social History Social History Smoking status: Never smoker Substance use: never Substance use type: does not use Living arrangements: with family Spiritual care concerns: No Anes - Eval Final PreProcedure Day of Procedure 01/23/25 14:23 Patient weight: normal Lungs: normal air movement Airway: Mallampati scale class II Neurological: alert and oriented Last oral intake: >/= 8 hours ASA classification: II Emergent: no Anesthetic plan: proceed Anesthesia type and monitoring: general ETT and standard monitoring Results Review: All pre-operative results and documents have been reviewed as part of the pre- operative evaluation. I used the [employer] sales commissions analyst. Pt in good health, states that she is very active and can walk 1-2 fos without cp or sob. Informed Consent: The patient's anesthetic plan and its attendant risks and benefits were discussed with the patient/family/POA. Questions were solicited and answers provided to the satisfaction of the patient/family/POA.
[2025-01-23] MEDS: ceFAZolin 2 GM in SODIUM CHLORIDE 0.9% IV 50 ML 100 ML IVPB (14:50)
[2025-01-23] MEDS: BUPIVACAINE/EPINEPHRINE 0.5% 30 ML VIAL INFILTRATE (15:03)
--- NOTE | 2025-01-23 15:14 | S_PTH ---
PATIENT: Radames Gamez LOC: [facility] U#:[id number] AGE/SX: 34/F ROOM: RE01/23/[address]: Frantz Robertson DO : 1990 BED: DIS: 01/23/2025 SPEC #: [id number] RECD: 01/24/25 07:38 STATUS: MARIA ISABEL REQ #: [id number] GERSON: 01/23/25 15:[address]: Frantz Robertson DEPT: [facility] Surgical RECD BY: Kevin Burr ENTERED: 01/24/25 07:39 SP TYPE: Surgical OTHR DR: Johanna Fam, [employer] DRIVER Tissues: A - Gallbladder Procedures: Hematoxylin and Eosin Stain Gross and Microscopic Level 3
[2025-01-23 15:16] LABS: BEDSIDEPREGUCG Negative (Negative)
--- NOTE | 2025-01-23 15:31 | P.OP_ITS ---
Procedure Note - Detailed Date of Procedure 01/23/25 Pre-op Diagnosis symptomatic cholelithiasis Post-op Diagnosis Same Procedure Performed Laparoscopic cholecystectomy Surgeon Frantz Robertson, DO Anesthesia General and Local (0.5% bupivacaine) Indications This is a 34-year-old woman who presented with epigastric and right upper quadrant abdominal pain that started about 2 months ago. She had gone to the emergency department on 12/10/2024 and an ultrasound showed evidence of cholelithiasis. She then followed up in the office. Discussions were made with the patient about treatment options and decision was made to proceed with laparoscopic cholecystectomy, possible open. Findings Laparoscopic cholecystectomy was performed. The gallbladder had a few pericholecystic adhesions and had some evidence of chronic inflammation. The cystic duct appeared normal in size. There did appear to be several small gallstones in the neck of the gallbladder. No other significant abnormalities were noted. The gallbladder was removed and sent to the lab for pathology. Description of Procedure Procedure as well as risks, benefits, and alternatives were discussed with patient. Written consent was obtained and placed in chart prior to procedure. The patient was brought back to surgical suite. Patient was placed in supine position on operating table. Time-out was done to confirm patient and procedure. Patient was then intubated by the anesthesia department. Abdomen was prepped and draped in sterile fashion using chlorhexidine prep. 0.5% bupivacaine with epinephrine was infiltrated at each site of incision. A 5 millimeter incision was made near the umbilicus, and a 5 millimeter Optiview trocar was advanced through the abdominal layers under direct visualization. Once inside the abdominal cavity, carbon dioxide was insufflated to create a pneumoperitoneum. The camera was inserted and the abdomen was inspected. No immediate abnormalities were identified. The patient was placed in reverse Trendelenburg position and rotated slightly to the left. An 11 millimeter incision was made in the subxiphoid region, and an 11 millimeter trocar was inserted under direct visualization. Two 5 millimeter incisions were made in the right upper quadrant, and two 5 millimeter trocars were inserted under direct visualization. The gallbladder was identified and grasped at the fundus and retracted superiorly. It was then grasped at the infundibulum retracted laterally. Careful dissection around the neck of the gallbladder was performed using blunt dissection with a [place] grasper and hook electrocautery. The cystic duct was identified, and a window was created behind it. The cystic artery was also identified and a window was created behind it. The critical view of safety was identified, visualizing the cystic duct running directly into the neck of the gallbladder, and the cystic artery running directly into the wall of the gallbladder. A 5 millimeter clip hot wire glass tube cutter was then used to place 2 clips proximally and 1 clip distally on both the cystic duct and cystic artery. They were then both transected using endoscopic scissors. Once safely away from the artis hepatitis, the gallbladder was dissected free from the liver bed using hook electrocautery. Hemostasis was achieved along the way. The gallbladder was removed completely and then removed through the subxiphoid port. The liver bed was then inspected. Hemostasis appeared adequate, and our clips appeared secure. The area was gently irrigated with sterile saline. No other abnormalities were seen. The patient was flattened out in bed, and 1 final inspection was made around the abdominal cavity. The subxiphoid port was removed, and a Jack Kian cone was used to approximate the fascia with an 0-Vicryl simple interrupted suture. The remaining ports were then removed under direct visualization, the camera was removed, and the pneumoperitoneum was released. The skin of the incisions was approximated using 4-0 Monocryl subcuticular sutures. Exofin glue was applied on top. The patient was then awakened from anesthesia, extubated, and transferred to recovery. Estimated Blood Loss 5 Pathology Yes (Gallbladder) Complications No immediate complications Condition Stable Disposition Same day [facility] Billing Surgery - Charge Forward: Surgery Billing
[2025-01-23] MEDS: fentaNYL CITRATE INJ (*CRX) 100 MCG/2 ML VIAL 25 MCG IV PUSH ×4 (15:48→16:02)
[2025-01-23] MEDS: oxyCODONE HCL (*CRX) 5 MG TAB IR PO (16:45)
--- NOTE | 2025-01-23 17:27 | SUR.PHASEII ---
TIME PATIENT CAN TAKE HYDROCODONE WITH TYLENOL CHANGED TO 10:30 PM; HAND WRITTEN CORRECTION ON PATIENT'S COPY.
--- NOTE | 2025-01-23 17:29 | SUR.PHASEII ---
PATIENT STOOD UP BUT FELT DIZZY; SAT BACK DOWN ON RECLINER. IVF'S CONTINUED.
== END 2025-01-23 18:20 | disposition home or self-care (01) ==
PROVIDERS: PCP Advanced Practice Midwife; Visit Provider Surgery
PROC: 0FT44ZZ Resection of Gallbladder, Percutaneous Endoscopic Approach (ICD-10-PCS; CPT 47562; principal; 2025-01-23 14:00)
DX: K80.20 Calculus of gallbladder without cholecystitis without obstruction (principal); K66.0 Peritoneal adhesions (postprocedural) (postinfection)
CPT/HCPCS: 47562; 36415; 82150; 88304; J0690; A9270; J1100; J1885; J2003; J2250; J2405; J2704; J3010; J7030; J7120

== ENCOUNTER 2025-01-27 22:19 | Emergency (ER) | payer OTHER, SELFPAY ==
--- NOTE | ~2025-01-27 | CT_ITS ---
EXAMINATION: CTA chest PE abdomen pel DATE: 01/28/2025 01:26 INDICATION: Chest pain and abdominal pain post recent cholecystectomy. TECHNIQUE: Computed tomography (CT) pulmonary angiogram of the chest was performed with 100 mL Omnipa que-350 intravenous contrast. Additional 3D reconstructions utilizing coronal maximum intensity proje ction (MIP) were performed. CT of the abdomen and pelvis was performed with intravenous contrast util izing the same contrast bolus following a short delay. Automated exposure control and iterative recon struction technique were employed. The dose-length product was 1029.46 mGy-cm. COMPARISON: None FINDINGS: Chest: No pulmonary embolism. Mild respiratory motion and mild atelectasis at the basilar lower lobes. No pn eumonia, pulmonary edema or pleural effusion. Heart size is normal. No pericardial effusion. Thoracic aorta is normal in caliber with no dissection. No pathologically enlarged thoracic lymphadenopathy. Mild lower thoracic spondylosis. Abdomen/pelvis: Cholecystectomy clips and mild stranding at the gallbladder fossa consistent with reported recent cho lecystectomy. No loculated or free intraperineal fluid to suggest abscess or bile leak/biloma. Liver, spleen, pancreas, bilateral adrenal glands are normal. There are bilateral renal cysts measuring up to 1.5 cm the left kidney. Bowels including the appendix are normal. Bladder, anteverted uterus and b ilateral adnexa are unremarkable. No pathologically enlarged abdominal or pelvic lymphadenopathy. Sma ll fat-containing umbilical hernia. 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 IMPRESSION: 1. No pulmonary embolism or acute cardiopulmonary disease. 2. Changes consistent with recent cholecystectomy with surgical clips and mild stranding at the gallb ladder fossa. No evident abscess, bile leak/biloma or other acute intra-abdominal/pelvic process. 3. Small fat-containing umbilical hernia. Reviewed, dictated and finalized at location A. IMPRESSION: 1. No pulmonary embolism or acute cardiopulmonary disease. 2. Changes consistent with recent cholecystectomy with surgical clips and mild stranding at the gallbladder fossa. No evident abscess, bile leak/biloma or oth er acute intra-abdominal/pelvic process. 3. Small fat-containing umbilical hernia.
[2025-01-27 22:22] VITALS: BP 151/99; PULSE 108; RESP 18; TEMP 36.8; O2SAT 99
[2025-01-27] MEDS: ONDANSETRON INJ 4 MG/2 ML VIAL IV PUSH (22:37)
[2025-01-27] MEDS: MORPHINE SULFATE (*CRX) 4 MG/ML INJ IV PUSH (22:37)
[2025-01-27] MEDS: SODIUM CHLORIDE 0.9% IV 1,000 ML 999 ML IV CONT (22:37)
[2025-01-27 22:43] LABS: Hematocrit 40.8 % (37.0-47.0); Hemoglobin 13.3 g/dL (12.0-15.0); Immature Granulocyte Percent A 0.1 % (0-0.5); Lymphocytes Absolute Auto 1.85 K/mm3 (0.9-3.2); Mean Corpuscular HGB Conc 32.6 g/dl (32-36); Mean Corpuscular Hemoglobin 29.4 pg (26-34); Mean Corpuscular Volume 90.3 fl (80-100); Nucleated Red Blood Cells Absolute Auto 0.000 K/mm3 (0.0-0.012); Nucleated Red Blood Cells Perc 0.0 % (0.0-0.2); Platelet Count Result 159 k/mm3 (150-375); Red Blood Count 4.52 M/mm3 (4.2-5.4); White Blood Count 6.8 K/mm3 (4.5-10.0)
--- OUTSIDE RECORDS SUMMARY | 2025-01-27 22:45 | XMS_ITS | Clinical Summary ---
Author Organization [facility] Address [facility] [place] [address] Care Team Providers Care Dryer Feeder Name Role Phone None, Provider MD Primary [...] Problem Noted Date Diagnosed Date Vaginal delivery ([facility]) 11/11/2024 ([facility]) 11/09/2024 Resolved Problems Problem Noted Date Diagnosed Date Resolved Date Vaginal delivery ([facility]) 12/30/2022 0 11/11/2024 Normal course ([facility]) 12/30/2022 11/11/2024 ([facility]) 12/28/2022 12/31/19 23 40 weeks gestation of ([facility]) 12/28/2022 12/30/2022 Encounters Date Type Department Care Team Description 11/10/2024 2:41 AM CDT Anesthesia Event [facility] [place] [address] Evy Bui CRNA 11/10/2024 Travel 11/09/2024 9:55 PM CDT - 11/12/2024 2:50 PM T Hospital En[facility] [place] [address] Sanjana Frias MD (MIOL) Discharge Disposition: Home or Self Care (Routine Discharge) 11/05/2024 7:53 AM CDT - 11/05/2024 9:14 AM [facility] Hospital Encounter [facility] [place] [address] Glynn Mitchell MD (MIOL) Discharge Disposition: Home [...] from your doctor or pharmacy? Always 11/09/2024 [facility] Utilities Answer Date Recorded In the past 12 months has [facility] [employer], gas, oil, or water [employer] threatened to shut off services in your [...] How often do you attend chur or episcopal services? More than 4 times per year 11/09/2024 Do you belong to any clubs o r organizations such as spiritism groups, unions, fraternal or athletic groups, or [...] Recorded Patient Health Questionnaire-2 Score 0 11/09/2024 [facility] - Occupational Stress [...] any time in the past 12 m [facility], were you homeless or living in a [...] & SCREEN STAT 11/09/2024 11:00 PM CDT ([facility]) SYPHILIS AB (DIAGNOSTIC) WITH CASCADING REFLEX STAT 11/09/2024 11:00 PM CDT ([facility]) DRUG SCREEN RAPID STAT 11/09/2024 11: 00 PM CDT ([facility]) HC URINALYSIS AUTO W/O MICRO STAT 11/09/2024 11:00 PM CDT ([facility]) CBC W/DIFF AUTOMATED STAT 11/09/2024 11:00 PM CDT ([facility]) CBC W/DIFF AUTOMATED STAT 11/05/2024 8:13 AM CDT ([facility]) from Last 3 Months Results * (ABNORMAL) Hemoglobin and Hematocrit (11/11/2024 6:20 AM CDT) HGB 11.8(L) 12.0 - 16.0 G/DL 11/11/2024 6:36 AM CDT [facility] HCT 35.0(L) 38.0 - 48.0 % 11/11/2024 6:36 AM CDT [facility] 11/11/2024 6:20 AM CDT Sanjana Frias MD LABORATORY Final Result [facility] [address] [place] [address], * Labor Epidural (11/10/2024 3:12 AM CDT) [...] Needle and Catheter: MRI Compatible: MRI UNSAFE ([id number]) Needle type: Tuohy Needle gauge: 17 G Needle length: 3.5 in Needle insertion depth: 6 cm Catheter type: side hole Catheter size: 19 G Catheter at skin depth: 11 cm Test dose: negative and lidocaine 1.5% with epinephrine 1-to-200,000 Needle attempts: 1 Assessment Sensory level: T10 Additional Notes LOT: [id number] EXP: 2025-09-12 Evy Bui CRNA SD ANESTHESIA Final Result * SYPHILIS IGG/IGM AB (11/09/2024 11:00 PM CDT) Pathologist [facility] SYPHILIS IGG IGM AB NON-REACTI VE NON-REACTI VE 11/10/2024 4:36 AM CDT [facility] Comment: No serologic evidence of syphilis. No follow-up necessary unless clinically indicated. 11/09/2024 11:0 0 PM CDT Sanjana Frias MD LABORATORY Final Result [facility] [address] [place] [id number], * DRUG SCREEN RAPID (11/09/2024 11:00 PM CDT) Pathologist [facility] AMPHETAMINE (U) NEGATIVE NEGATIVE 9:05 PM CDT [facility] BARBITURATES SCREEN (U) NEGATIVE NEGATIVE 11/10/2024 9:05 PM CDT [facility] BENZODIAZEPINES SCREEN (U) NEGATIVE NEGATIVE 11/10/2024 9:05 PM CDT [facility] CANNABINOIDS SCREEN (U) NEGATIVE NEGATIVE 11/10/2024 9:05 PM CDT [facility] COCAINE METABOLITES (U) NEGATIVE NEGATIVE 11/10/2024 9:05 PM CDT [facility] METHADONE (U) NEGATIVE NEGATIVE 11/10/2024 9:05 PM CDT [facility] OPIATE SCREEN (U) NEGATIVE NEGATIVE 025 9:05 PM CDT [facility] PHENCYCLIDINE PCP (U) NEGATIVE NEGATIVE 11/10/2024 9:05 PM CDT [facility] Comment: NOTE: RESULTS OF THIS DRUG SCREEN SHOULD BE USED FOR MEDICAL PURPOSES ONLY AND NOT FOR LEGAL OR EMPLOYMENT PURPOSES. POSITIVE RESULTS ARE NOT CONFIRMED. MEDICATIONS CONTAINING EPHEDRINE MAY CAUSE FALSE POSITIVE AMPHETAMINE CALL [phone], LAB, TO REQUEST CONFIRMATION TESTING. IF CREATININE IS <40 mg/dL. RECOLLECTION IS SUGGESTED. AMPHETAMINE- 500 NG/ML BARBITURATE- 200 NG/ML BENZODIAZEPINES- 200 NG/ML THC- 50 NG/ML COCAINE- 150 NG/ML METHADONE- 300 NG/ML OPIATE- 300 MG/ML PCP- 25 NG/ML CREATININE (U) 104.0 28 - 217 MG/DL 11/10/2024 9:05 PM CDT [facility] URINE SPECIMEN / Unknown 11/09/2024 11:00 PM CDT Sanjana Frias MD URINE ORDERABLES Final Resul t Performing Organization Address City/[facility]/ZIP Co de Phone Number [facility] [address] [place] [id number], * TYPE & SCREEN (11/09/2024 11:00 PM CDT) ABO/RH O POSITIVE 11/10/2024 12:59 AM CDT [facility] ANTIBODY SCREEN NEGATIVE 11/10/2024 12:59 AM CDT [facility] SAMPLE EXPIRATION 11/12/2024,2 359 11/10/2024 12:59 AM CDT [facility] 11/09/2024 11:0 0 PM CDT Sanjana Frias MD BLOOD BANK TEST ORDERABLES F inal Result [facility] [address] [place] [address], [place] [phone] * URINALYSIS (11/09/2024 11:00 PM CDT) SPECIMEN TYPE URINE CLEAN CATCH 11/10/2024 7:01 PM CDT [facility] COLOR (U) YELLOW 11/10/2024 8:57 PM CDT [facility] TRANSPARENCY TURBID 11/10/2024 8:57 PM CDT [facility] SPECIFIC GRAVITY (U) 1.019 1.001 - 1.030 11/10/2024 8:57 PM CDT [facility] U PH 7.5 5.0 - 9.0 11/10/2024 8:57 PM CDT [facility] LEUKOCYTES (U) NEGATIVE NEGATIVE 11/10/2024 8:57 PM CDT [facility] NITRITES NEGATIVE NEGATIVE 11/10/2024 8:57 PM CDT [facility] PROTEIN RANDOM (U) NEGATIVE <30 MG/DL 11/10/2024 8:57 PM CDT [facility] GLUCOSE (U) NORMAL NORMAL MG/DL 11/10/2024 8:57 PM CDT [facility] KETONES MG/DL (U) NEGATIVE NEGATIVE MG/DL 11/10/2024 8:57 PM CDT [facility] UROBILINOGEN NORMAL NORMAL MG/DL 11/10/2024 8:57 PM CDT [facility] BILIRUBIN (U) NEGATIVE NEGATIVE MG/DL 11/10/2024 8:57 PM CDT [facility] BLOOD (U) NEGATIVE NEGATIVE 11/10/2024 8:57 PM CDT [facility] URINE SPECIMEN OBTAINED BY CLEAN CATCH PROCEDURE / Unknown 11/09/2024 11:00 PM CDT us Sanjana Frias MD URINE ORDERABLES Final Resul t [facility] [address] [place] [address], [place] [phone] * (ABNORMAL) CBC W/DIFF AUTOMATED (11/09/2024 11:00 PM CDT) Only the most recent of2 resultswithin the time period is included. WBC 5.58 4.5 - 11.0 x10'3/uL 11/09/2024 11:59 PM CDT [facility] RBC 3.98(L) 4.20 - 5.40 x10'6/uL 11/09/2024 11:59 PM CDT [facility] HGB 12.3 12.0 - 16.0 G/DL 11/09/2024 11:59 PM CDT [facility] HCT 36.8(L) 38.0 - 48.0 % 11/09/2024 11:59 PM CDT [facility] MCV 92.5 81.0 - 99.0 FL 11/09/2024 11:59 PM CDT [facility] MCH 30.9 27.0 - 31.0 PG 11/09/2024 11:59 PM CDT [facility] MCHC 33.4 32.0 - 36.0 G/DL 11/09/2024 11:59 PM CDT [facility] RDW 13.7 11.5 - 14.5 % 11/09/2024 11:59 PM CDT [facility] PLT 113(L) 130 - 400 x10'3/uL 11/09/2024 11:59 PM CDT [facility] MPV 13.7(H) 9.3 - 12.2 FL 11/09/2024 11:59 PM CDT [facility] DIFFERENTIAL TYPE AUTOMATED DIFFERENTIAL 11/09/2024 11:59 PM CDT [facility] NEUTROPHILS % 61.4 % 11/09/2024 11:59 PM CDT [facility] LYMPHOCYTES % 29.9 % 11/09/2024 11:59 PM CDT [facility] MONOCYTES % 7.9 % 11/09/2024 11:59 PM CDT [facility] EOSINOPHILS 0.2 % 11/09/2024 11:59 PM CDT [facility] BASOPHILS 0.2 % 11/09/2024 11:59 PM CDT [facility] IMMATURE GRANS % 0.4 % 11/10/19 11:59 PM CDT [facility] ABS. NEUTROPHILS 3.43 1.80 - 7.70 x10'3/uL 11/09/2024 11:59 PM CDT [facility] ABS. LYMPHOCYTES 1.67 1.00 - 4.80 x10'3/uL 11/09/2024 11:59 PM CDT [facility] ABS. MONOCYTES 0.44 0.24 - 0.86 x10'3/uL 11/09/2024 11:59 PM CDT [facility] ABS. EOSINOPHILS 0.01(L) 0.04 - 0.36 x10'3/uL 11/09/2024 11:59 PM CDT [facility] ABS. BASOPHILS 0.01 0.01 - 0.08 x10'3/uL 11/09/2024 11:59 PM CDT [facility] ABS. IMMATURE GRANULOCYTES 0.02 0.00 - 0.49 x10'3/uL 11/09/2024 11:59 PM CDT [facility] 11/09/2024 11:0 0 PM CDT us Sanjana Frias MD LABORATORY Final Result [facility] [address] [place] [address], [place] [phone] from Last 3 Months Insurance [employer] Advance Directives * Full Code (Latest Code Status on File) Date Activated Date Inactivated Comments 11/09/2024 10:02 PM 11/12/2024 6:24 PM * Full Code Date Activated Date Inactivated Comments 12/28/2022 9:08 AM 12/30/2022 3:40 PM Care Teams Dryer Feeder Relationship Specialty Start Date End Date None, Provider, PCP - General UNKNOWN PHYSICIAN SPECIALTY 12/28/22
--- OUTSIDE RECORDS SUMMARY | 2025-01-27 22:45 | XMS_ITS | Clinical Summary ---
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
[2025-01-27 23:02] LABS: Alanine Aminotransferase 67 U/L (6-35); Albumin Level 4.6 g/dL (3.5-5.1); Alkaline Phosphatase 173 U/L (38-126); Anion Gap 11 mmol/L (4-12); Aspartate Amino Transferase 150 U/L (14-36); Bilirubin,Total 1.0 mg/dL (0.2-1.3); Blood Urea Nitrogen 14 mg/dL (7-17); Calcium 9.4 mg/dL (8.4-10.2); Carbon Dioxide 26 mmol/L (22-30); Chloride 105 mmol/L (98-107); Estimated CRCL calculation 121 ml/min; Estimated Glomerular Filt Rate > 60; Glucose 97 mg/dL (65-110); Lipase 43 U/L (23-300); Potassium 3.7 mmol/L (3.4-5.0); Sodium 142 mmol/L (137-145); Total Protein 8.0 g/dL (6.3-8.2)
--- NOTE | 2025-01-27 23:04 | ECG_ITS ---
Test Date: 2025-01-27 23:14:21 Measurements Intervals [place] Rate: 86 P: 50 IN: 155 QRS: -3 QRSD: 106 T: 27 QT: 362 QTc: 434 Interpretive Statements SINUS RHYTHM VOLTAGE CRITERIA FOR LVH POSSIBLE ANTERIOR MYOCARDIAL INFARCTION , OF INDETERMINATE AGE BORDERLINE T WAVE ABNORMALITY- ANTERIOR LEADS ABNORMAL ECG No previous ECG available for comparison Electronically Signed On 01-28-2025 07:17:09 CDT by Eulogio Leigh D.O.
--- NOTE | 2025-01-27 23:04 | ED.ABDPAIN ---
HPI - Abdominal Pain General Chief Complaint: Abdominal Pain <CHAR Paula Last Filed: 01/29/25 14:19> Stated Complaint: Abd pain/Post-op <CHAR Paula Last Filed: 01/29/25 14:19> Time Seen by Provider: 01/27/25 22:22 <CHAR Paula Last Filed: 01/29/25 14:19> Source: patient <CHAR Paula Last Filed: 01/29/25 14:19> Mode of arrival: ambulatory <CHAR Paula Last Filed: 01/29/25 14:19> Limitations: no limitations <CHAR Paula Last Filed: 01/29/25 14:19> History of Present Illness HPI narrative: This is a 34-year-old female that presents to emergency department for upper abdominal pain. Had a laparoscopic cholecystectomy 4 days ago. Tonight she started to develop epigastric pain, chest pain, back pain. Reports some diarrhea today. Reports associated nausea. Denies fevers, vomiting. <CHAR Paula Last Filed: 01/29/25 14:19> Related Data Home Medications: Home Medications ?Medication ?Instructions ?Recorded ?Confirmed ?Last Taken ?Type famotidine 20 mg tablet 20 mg PO BID 01/29/25 01/29/25 Unknown History sucralfate 1 gram tablet 1 g PO QID PRN reflux 01/29/25 01/29/25 Unknown History <CHAR Paula Last Filed: 01/29/25 14:19> Allergies/Adverse Reactions: Allergies Allergy/AdvReac Type Severity Reaction Status Date / Time No Known Allergies Allergy Verified 01/29/25 02:44 <CHAR Paula Last Filed: 01/29/25 14:19> Review of Systems Review of Systems: All systems reviewed & are unremarkable except as noted in HPI and below <CHAR Paula Last Filed: 01/29/25 14:19> [facility] Past Medical History Medical History: Medical History Healthy female adult <Jamee Mendoza PA-C - Last Filed: 01/29/25 14:19> Surgical History Surgical History: Surgical History Hx of cholecystectomy <Jamee Mendoza PA-C - Last Filed: 01/29/25 14:19> Social History Social History: Social History Smoking status: Never smoker Alcohol intake: never Substance use: never Substance use type: does not use Lack of Transportation: No Lack of Food: Never True Current Housing: I Have Housing Concerned About Future Housing: No Difficulty Paying Gas/Electric Bills: No Difficulty Paying for Meds: No Currently Unemployed: No Education: High School Diploma/GED Difficulty w/ Childcare or Family Care: No Living arrangements: with family Spiritual care concerns: Yes (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) <Jamee Mendoza PA-C - Last Filed: 01/29/25 14:19> Exam Narrative: GENERAL: Well-appearing, well-nourished, and in no acute distress. HEAD: Normocephalic, atraumatic. EYES: EOMI. CHEST: Clear to auscultation. No respiratory distress. No wheezes rales or rhonchi HEART: Regular rate and rhythm. No murmur heard. Normal peripheral pulses. ABDOMEN: Soft, nondistended, normal active bowel sounds. Tender to palpation in the epgastrium, without guarding. Incisions are clean, dry, intact EXTREMITIES: Normal range of motion. No edema. SKIN: Warm, dry, no rash. NEURO: No focal deficits. Alert and oriented x3. PSYCH: Normal mood and affect <CHAR Paula Last Filed: 01/29/25 14:19> Course Course Emergency Course: Patient updated on her workup thus far. Resting comfortably <CHAR Paula Last Filed: 01/29/25 14:19> Patient updated on her workup thus far. Resting comfortably. Patient care signed over by previous provider pending CT angiography results. CT angiography shows no embolism, no acute findings in the chest, no acute finding in the abdomen aside from post cholecystectomy and maybe mild enterocolitis. Patient comfortable on re-evaluation. Is afebrile, no leukocytosis or anemia. Vital signs stable, Normal labs aside from her previously elevated LFTs which are stable. Negative troponin. Patient is safe for discharge at this time with follow-up with her general surgeon. <Roberto Mims MD - Last Filed: 01/28/25 07:03> Vital Signs Vital signs: Vital Signs Temperature 98.3 F 01/27/25 22:22 Pulse Rate 108 H 01/27/25 22:22 Respiratory Rate 18 01/27/25 22:22 Blood Pressure 151/99 H 01/27/25 22:22 Pulse Oximetry 99 01/27/25 22:22 Oxygen Delivery Room Air 01/27/25 22:22 Temperature 98.4 F 01/28/25 05:21 Pulse Rate 61 01/28/25 05:21 Respiratory Rate 18 01/28/25 05:21 Blood Pressure 132/74 01/28/25 05:21 Pulse Oximetry 98 01/28/25 05:21 Oxygen Delivery Room Air 01/27/25 22:22 <Jamee Mendoza PA-C - Last Filed: 01/29/25 14:19> Vital Signs Temperature 98.3 F 01/27/25 22:22 Pulse Rate 108 H 01/27/25 22:22 Respiratory Rate 18 01/27/25 22:22 Blood Pressure 151/99 H 01/27/25 22:22 Pulse Oximetry 99 01/27/25 22:22 Oxygen Delivery Room Air 01/27/25 22:22 Temperature 98.4 F 01/28/25 05:21 Pulse Rate 61 01/28/25 05:21 Respiratory Rate 18 01/28/25 05:21 Blood Pressure 132/74 01/28/25 05:21 Pulse Oximetry 98 01/28/25 05:21 Oxygen Delivery Room Air 01/27/25 22:22 <Roberto Mims MD - Last Filed: 01/28/25 07:03> MDM - Abdominal Pain MDM Narrative Medical decision making narrative: Presents to the emergency department for epigastric abdominal pain. Recent cholecystectomy. She is afebrile and nontoxic appearing. Tachycardic upon arrival, this normalized with IV fluids. Cbc without leukocytosis. Metabolic panel with mild transaminitis. Total bilirubin is normal. Urine without evidence of infection. CTA chest PE with abdomen pelvis obtained for further evaluation. Care taken over by Dr. Mims at shift change <Jamee Mendoza PA-C - Last Filed: 01/29/25 14:19> Differential Diagnosis Differential diagnosis: Likely other (PE, pneumonia, post-op pain, post-op infection, bile leak) <Jamee Mendoza PA-C - Last Filed: 01/29/25 14:19> Lab Data Attestation: I reviewed the patient's lab results. <Jamee Mendoza PA-C - Last Filed: 01/29/25 14:19> Result diagrams: 01/27/25 22:34 01/27/25 22:34 <CHAR Paula Last Filed: 01/29/25 14:19> Labs: Lab Results 01/27/25 01/27/25 01/27/25 Range/Units 22:34 22:58 23:59 WBC 6.8 (4.5-10.0) K/mm3 RBC 4.52 (4.2-5.4) M/mm3 Hgb 13.3 (12.0-15.0) g/dL Hct 40.8 (37.0-47.0) % MCV 90.3 (80-100) fl MCH 29.4 (26-34) pg MCHC 32.6 (32-36) g/dl RDW 12.2 (11.5-14.5) % Plt Count 159 (150-375) k/mm3 MPV 11.2 H (7.4-10.4) fl Immature Gran % (Auto) 0.1 (0-0.5) % Neut % (Auto) 63.9 (45.5-73.1) % Lymph % (Auto) 27.4 (18.3-44.2) % [place] % (Auto) 8.1 (2.6-8.5) % Eos % (Auto) 0.4 (0-4.4) % Baso % (Auto) 0.1 L (0.2-1.2) % Lymph # (Auto) 1.85 (0.9-3.2) K/mm3 [place] # (Auto) 0.6 (0.1-0.6) K/mm3 Eos # (Auto) 0.0 (0-0.3) K/mm3 Baso # (Auto) 0.0 (0.0-0.1) K/mm3 Abs Immat Gran (auto) 0.01 (0.00-0.031) K/mm3 Absolute Neuts (auto) 4.3 (1.3-6.7) K/mm3 Absolute Nucleated RBC 0.000 (0.0-0.012) K/mm3 Nucleated RBC % 0.0 (0.0-0.2) % PT 13.1 (11.1-14.7) Seconds INR 1.0 APTT 24.8 (22.3-36.8) Seconds D-Dimer 0.80 H (<0.48) ug/mL Sodium 142 (137-145) mmol/L Potassium 3.7 (3.4-5.0) mmol/L Chloride 105 (98-107) mmol/L Carbon Dioxide 26 (22-30) mmol/L Anion Gap 11 (4-12) mmol/L BUN 14 (7-17) mg/dL Creatinine 0.59 L (0.7-1.0) mg/dL Estim Creat Clear Calc 121 ml/min Estimated GFR > 60 (59 - ) Glucose 97 (65-110) mg/dL Calcium 9.4 (8.4-10.2) mg/dL Total Bilirubin 1.0 (0.2-1.3) mg/dL AST 150 H (14-36) U/L ALT 67 H (6-35) U/L Alkaline Phosphatase 173 H (38-126) U/L Troponin I < 0.012 (0.000-0.034) ng/mL Total Protein 8.0 (6.3-8.2) g/dL Albumin 4.6 (3.5-5.1) g/dL Lipase 43 (23-300) U/L Urine Color Yellow (Yellow) Urine Appearance Cloudy H (Clear) Urine pH 7.5 (5.0-9.0) Ur Specific [place] 1.025 (1.001-1.035) Urine Protein Trace (Negative) mg/dL Urine Glucose (UA) Negative (Negative) mg/dL Urine Ketones Trace H (Negative) mg/dL Ur Blood (Man) Negative (Negative) Urine Nitrate Negative (Negative) Urine Bilirubin Negative (Negative) Urine Urobilinogen 1.0 (<2.0) mg/dL Add Ur Microanalysis Reviewed Leukocyte Esterase Rfl 1+ H (Negative) CLIF/UL Urine RBC 3-5 H (0-2) /hpf Urine WBC 0-5 (0-3) /hpf Ur Squamous Epith Cells Few (Few) /hpf Urine Bacteria None seen /hpf Urine Casts 0-2 Urine Mucus Present /lpf POC Urine HCG, Qual Negative (Negative) Urine Test Negative <Jamee Mendoza PA-C - Last Filed: 01/29/25 14:19> Lab Results 01/27/25 01/27/25 01/27/25 Range/Units 22:34 22:58 23:59 WBC 6.8 (4.5-10.0) K/mm3 RBC 4.52 (4.2-5.4) M/mm3 Hgb 13.3 (12.0-15.0) g/dL Hct 40.8 (37.0-47.0) % MCV 90.3 (80-100) fl MCH 29.4 (26-34) pg MCHC 32.6 (32-36) g/dl RDW 12.2 (11.5-14.5) % Plt Count 159 (150-375) k/mm3 MPV 11.2 H (7.4-10.4) fl Immature Gran % (Auto) 0.1 (0-0.5) % Neut % (Auto) 63.9 (45.5-73.1) % Lymph % (Auto) 27.4 (18.3-44.2) % [place] % (Auto) 8.1 (2.6-8.5) % Eos % (Auto) 0.4 (0-4.4) % Baso % (Auto) 0.1 L (0.2-1.2) % Lymph # (Auto) 1.85 (0.9-3.2) K/mm3 [place] # (Auto) 0.6 (0.1-0.6) K/mm3 Eos # (Auto) 0.0 (0-0.3) K/mm3 Baso # (Auto) 0.0 (0.0-0.1) K/mm3 Abs Immat Gran (auto) 0.01 (0.00-0.031) K/mm3 Absolute Neuts (auto) 4.3 (1.3-6.7) K/mm3 Absolute Nucleated RBC 0.000 (0.0-0.012) K/mm3 Nucleated RBC % 0.0 (0.0-0.2) % PT 13.1 (11.1-14.7) Seconds INR 1.0 APTT 24.8 (22.3-36.8) Seconds D-Dimer 0.80 H (<0.48) ug/mL Sodium 142 (137-145) mmol/L Potassium 3.7 (3.4-5.0) mmol/L Chloride 105 (98-107) mmol/L Carbon Dioxide 26 (22-30) mmol/L Anion Gap 11 (4-12) mmol/L BUN 14 (7-17) mg/dL Creatinine 0.59 L (0.7-1.0) mg/dL Estim Creat Clear Calc 121 ml/min Estimated GFR > 60 (59 - ) Glucose 97 (65-110) mg/dL Calcium 9.4 (8.4-10.2) mg/dL Total Bilirubin 1.0 (0.2-1.3) mg/dL AST 150 H (14-36) U/L ALT 67 H (6-35) U/L Alkaline Phosphatase 173 H (38-126) U/L Troponin I < 0.012 (0.000-0.034) ng/mL Total Protein 8.0 (6.3-8.2) g/dL Albumin 4.6 (3.5-5.1) g/dL Lipase 43 (23-300) U/L Urine Color Yellow (Yellow) Urine Appearance Cloudy H (Clear) Urine pH 7.5 (5.0-9.0) Ur Specific [place] 1.025 (1.001-1.035) Urine Protein Trace (Negative) mg/dL Urine Glucose (UA) Negative (Negative) mg/dL Urine Ketones Trace H (Negative) mg/dL Ur Blood (Man) Negative (Negative) Urine Nitrate Negative (Negative) Urine Bilirubin Negative (Negative) Urine Urobilinogen 1.0 (<2.0) mg/dL Add Ur Microanalysis Reviewed Leukocyte Esterase Rfl 1+ H (Negative) CLIF/UL Urine RBC 3-5 H (0-2) /hpf Urine WBC 0-5 (0-3) /hpf Ur Squamous Epith Cells Few (Few) /hpf Urine Bacteria None seen /hpf Urine Casts 0-2 Urine Mucus Present /lpf POC Urine HCG, Qual Negative (Negative) Urine Test Negative <Roberto Mims MD - Last Filed: 01/28/25 07:03> Imaging Data Radiologist's impression: ITS Impressions Chest/Abdomen/Pelvis CTA 01/28/25 09:47 IMPRESSION: 1. No pulmonary embolism or acute cardiopulmonary disease. 2. Changes consistent with recent cholecystectomy with surgical clips and mild stranding at the gallbladder fossa. No evident abscess, bile leak/biloma or other acute intra-abdominal/pelvic process. 3. Small fat-containing umbilical hernia. <Jamee Mendoza PA-C - Last Filed: 01/29/25 14:19> ITS Impressions Chest/Abdomen/Pelvis CTA 01/28/25 09:47 IMPRESSION: 1. No pulmonary embolism or acute cardiopulmonary disease. 2. Changes consistent with recent cholecystectomy with surgical clips and mild stranding at the gallbladder fossa. No evident abscess, bile leak/biloma or other acute intra-abdominal/pelvic process. 3. Small fat-containing umbilical hernia. <Roberto Mims MD - Last Filed: 01/28/25 07:03> ECG Data EKG #1: ECG completion date: 01/27/25 <Jamee Mendoza PA-C - Last Filed: 01/29/25 14:19> normal rate, sinus rhythm, no ST changes and normal QT <Jamee Mendoza PA-C - Last Filed: 01/29/25 14:19> Critical Care Time Critical Care Time Critical Care Time: No <Jamee Mendoza PA-C - Last Filed: 01/29/25 14:19> Discharge Plan Discharge Clinical Impression: Post-op pain Abdominal pain Qualifiers: Abdominal location: epigastric Qualified Code(s): R10.13 - Epigastric pain <CHAR Paula Last Filed: 01/29/25 14:19> Patient Disposition: Home <Jamee Mendoza PA-C - Last Filed: 01/29/25 14:19> Condition: Stable <Jamee Mendoza PA-C - Last Filed: 01/29/25 14:19> Instructions: Antibiotic Form, Abdominal Pain (ED) <CHAR Paula Last Filed: 01/29/25 14:19> Additional Instructions: CT scan shows no blood clots, no acute findings in the chest or lungs, no acute findings in the abdomen, possibly some mild inflammation in the bowels but mostly expected for the procedure as well as the antibiotic you are currently taking, but no signs of active infection or any free fluid, no complications from the cholecystectomy. Follow-up with your regular primary care provider and your general surgeon. Return with any worsening symptoms, developing fevers, worsening pain, intractable nausea or inability to tolerate oral intake. <Jamee Mendoza PA-C - Last Filed: 01/29/25 14:19> Patient Language: Lithuanian <Jamee Mendoza PA-C - Last Filed: 01/29/25 14:19> Prescriptions: No Action hydrocodone-acetaminophen 5-325 mg tablet 1 tablet PO Q4H PRN (Reason: pain) Qty: 10 0RF sucralfate 1 gram tablet 1 g PO QID PRN (Reason: reflux) famotidine 20 mg tablet 20 mg PO BID <Jamee Mendoza PA-C - Last Filed: 01/29/25 14:19> Follow-up/Referrals: Cristel,Johanna Beckham CNM [Primary Care Provider] - <Jamee Mendoza PA-C - Last Filed: 01/29/25 14:19> Time of Disposition: 05:02 <Jamee Mendoza PA-C - Last Filed: 01/29/25 14:19> 05:02 <Roberto Mims MD - Last Filed: 01/28/25 07:03>
[2025-01-27 23:17] LABS: Pregnancy On Board Control Positive
[2025-01-27 23:27] LABS: INR 1.0; Prothrombin Time 13.1 Seconds (11.1-14.7)
[2025-01-27 23:27] LABS: Add Urine Microscopic? YES; Appearance Urine Cloudy (Clear); Glucose Urine UA Negative (Negative); Leukocyte Esterase Ur 1+ LEU/UL (Negative); Need Manual Microscopic Reviewed; Nitrate Urine Negative (Negative); Non Pathogenic Casts 0-2; Specific Grav Ur 1.025 (1.001-1.035)
[2025-01-27 23:28] LABS: Partial Thromboplastin Time 24.8 Seconds (22.3-36.8)
[2025-01-28 00:01] LABS: BEDSIDEPREGUCG Negative (Negative)
[2025-01-28 00:04] VITALS: BP 118/71; PULSE 93; RESP 18; O2SAT 97
[2025-01-28 01:21] LABS: Troponin I < 0.012 ng/mL (0.000-0.034)
[2025-01-28 01:48] VITALS: BP 127/47; PULSE 104; RESP 18; O2SAT 97
[2025-01-28] MEDS: FAMOTIDINE 20 MG/2 ML VIAL IV PUSH (02:22)
[2025-01-28 05:02] VITALS: PULSE 90; O2SAT 98
[2025-01-28 05:21] VITALS: BP 132/74; PULSE 61; RESP 18; TEMP 36.9; O2SAT 98
== END 2025-01-28 05:22 | disposition home or self-care (01) ==
PROVIDERS: Emergency Provider Physician Assistant; PCP Advanced Practice Midwife
DX: G89.18 Other acute postprocedural pain (principal); R10.13 Epigastric pain; Z90.49 Acquired absence of other specified parts of digestive tract; R94.31 Abnormal electrocardiogram [ECG] [EKG]; K42.9 Umbilical hernia without obstruction or gangrene
CPT/HCPCS: 36415; 71275; 74177; 80053; 81001; 81025; 83690; 84484; 85025; 85380; 85610; 85730; 87086; 93005; 96361; 96374; 96375; 99284; J2270; J2405; J7030; Q9967

== ENCOUNTER 2025-01-29 02:31 | Observation (INO) | payer OTHER, SELFPAY ==
[2025-01-29] VITALS (8 sets, daily range): BP systolic 144–165; BP diastolic 90–115; PULSE 62–72; RESP 17–20; TEMP 36.7–36.9; O2SAT 96–99; BMI 30.4
--- NOTE | ~2025-01-29 | MR_ITS ---
EXAMINATION: MR MRCP wo/w con/w 3D wo ind DATE: 01/30/2025 11:59 INDICATION: Recent cholecystectomy. Elevated liver function tests. TECHNIQUE: Magnetic resonance imaging (MRI) of the abdomen was performed without and with 20 mL Multi tricia intravenous contrast. Sequences included coronal T2-weighted SS-FSE, coronal T2-weighted FS SS- FSE, coronal T2-weighted FS FIESTA, axial T2-weighted FS FIESTA, axial T2-weighted FIESTA, sagittal T 2-weighted SS-FSE, axial T1-weighted dual-echo FSPGR, axial T2-weighted SS-FSE, axial T1-weighted LAV A, axial T2-weighted STIR FSE. Thick-slab T2-weighted FRFSE-XL images were obtained for magnetic reso nance cholangiopancreatography (MRCP). Rotating maximum intensity projection 3-D reconstructions of t he volumetric data were created by the technologist. Postcontrast sequences included a time course of axial T1-weighted LAVA. COMPARISON: CT dated 01/28/2025 FINDINGS: ABDOMEN MRI: Heart size is normal. No pericardial or pleural effusion. Liver is normal with no intrahepatic biliar y ductal dilation. Mild edema at the gallbladder fossa post recent cholecystectomy with susceptibilit y artifact such with a few cholecystectomy clips. Spleen, pancreas and bilateral adrenal glands are n ormal. There are bilateral T2 hyperintense renal cysts, the largest measuring 1.6 cm the left kidney. Visualized portions of bowels occluding the appendix are normal. Small fat-containing umbilical darby ia. No abscess, biloma or other loculated fluid collections in the abdomen and visualized upper pelvi s. No pathologically enlarged abdominal or upper pelvic lymphadenopathy. Visualized bones are unremar kable with normal marrow signal throughout. ABDOMEN MRCP: Common bile duct is normal in caliber measuring up to 3 to 4 mm in maximal diameter, tapering distall y without intraluminal filling defects to suggest choledocholithiasis. Normal intrahepatic biliary tr ee. IMPRESSION: 1. Expected appearance post recent cholecystectomy with mild stranding at the gallbladder fossa. 2. Otherwise unremarkable MRCP with no biliary ductal dilation or filling defects to suggest choledoc holithiasis. Reviewed, dictated and finalized at location A. IMPRESSION: 1. Expected appearance post recent cholecystectomy with mild stranding at the g allbladder fossa. 2. Otherwise unremarkable MRCP with no biliary ductal dilation or filling defec ts to suggest choledocholithiasis.
--- OUTSIDE RECORDS SUMMARY | 2025-01-29 02:34 | XMS_ITS | Clinical Summary ---
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 Name Role Phone None, Provider MD Primary [...] Problem Noted Date Diagnosed Date Vaginal delivery ([facility]) 11/11/2024 ([facility]) 11/09/2024 Resolved Problems Problem Noted Date Diagnosed Date Resolved Date Vaginal delivery ([facility]) 12/30/2022 0 11/11/2024 Normal course ([facility]) 12/30/2022 11/11/2024 ([facility]) 12/28/2022 12/31/19 23 40 weeks gestation of ([facility]) 12/28/2022 12/30/2022 Encounters Date Type Department Care Team Description 11/10/2024 2:41 AM CDT Anesthesia Event [facility] Labor [place] [address] Evy Bui CRNA 11/10/2024 Travel 11/09/2024 9:55 PM CDT - 11/12/2024 2:50 PM [address] [facility] [address] Sanjana Frias MD (MIOL) Discharge Disposition: Home or Self Care (Routine Discharge) 11/05/2024 7:53 AM CDT - 11/05/2024 9:14 AM [facility] Hospital En[facility] [address] Glynn Mitchell MD (MIOL) Discharge Disposition: Home [...] from your doctor or pharmacy? Always 11/09/2024 [facility] Utilities Answer Date Recorded In the past 12 months has [facility], gas, oil, or water [employer] threatened to shut off services in your [...] How often do you attend chur or protestant services? More than 4 times per year [...] Recorded Patient Health Questionnaire-2 Score 0 11/09/2024 [facility] of Occupat ional Health - Occupational Stress [...] place to sleep or slept in a mcfp (including now)? No 12/28/2022 Housing Stability Vital Sign Answer Luciano e Recorded In the last 12 months, was t here a time when you were not able to pay the mortgage or rent on time? No 11/09/2024 In the past 12 months, how m any times have you moved where you were living? 1 11/09/2024 At any time in the past 12 m [facility], were you homeless or living in a mcfp (including now)? No 11/09/2024 Depression Answer Date [...] & SCREEN STAT 11/09/2024 11:00 PM CDT ([facility]) SYPHILIS AB (DIAGNOSTIC) WITH CASCADING REFLEX STAT 11/09/2024 11:00 PM CDT ([facility]) DRUG SCREEN RAPID STAT 11/09/2024 11: 00 PM CDT ([facility]) HC URINALYSIS AUTO W/O MICRO STAT 11/09/2024 11:00 PM CDT ([facility]) CBC W/DIFF AUTOMATED STAT 11/09/2024 11:00 PM CDT ([facility]) CBC W/DIFF AUTOMATED STAT 11/05/2024 8:13 AM CDT ([facility]) from Last 3 Months Results * (ABNORMAL) Hemoglobin and Hematocrit (11/11/2024 6:20 AM CDT) HGB 11.8(L) 12.0 - 16.0 G/DL 11/11/2024 6:36 AM CDT [facility] HCT 35.0(L) 38.0 - 48.0 % 11/11/2024 6:36 AM CDT [facility] 11/11/2024 6:20 AM CDT Sanjana Frias MD LABORATORY Final Result [facility] [address] [place] [address], * Labor Epidural (11/10/2024 3:12 AM CDT) [...] Needle and Catheter: MRI Compatible: MRI UNSAFE ([id number]) Needle type: Tuohy Needle gauge: 17 G Needle length: 3.5 in Needle insertion depth: 6 cm Catheter type: side hole Catheter size: 19 G Catheter at skin depth: 11 cm Test dose: negative and lidocaine 1.5% with epinephrine 1-to-200,000 Needle attempts: 1 Assessment Sensory level: T10 Additional Notes LOT: [id number] EXP: 2025-09-12 Evy Bui CRNA [place] ANESTHESIA Final Result * SYPHILIS IGG/IGM AB (11/09/2024 11:00 PM CDT) Pathologist [facility] SYPHILIS IGG IGM AB NON-REACTI VE NON-REACTI VE 11/10/2024 4:36 AM CDT [facility] Comment: No serologic evidence of syphilis. No follow-up necessary unless clinically indicated. 11/09/2024 11:0 0 PM CDT Sanjana Frias MD LABORATORY Final Result [facility] [address] [place] [address], * DRUG SCREEN RAPID (11/09/2024 11:00 PM CDT) Pathologist [facility] AMPHETAMINE (U) NEGATIVE NEGATIVE 9:05 PM CDT [facility] BARBITURATES SCREEN (U) NEGATIVE NEGATIVE 11/10/2024 9:05 PM CDT [facility] BENZODIAZEPINES SCREEN (U) NEGATIVE NEGATIVE 11/10/2024 9:05 PM CDT [facility] CANNABINOIDS SCREEN (U) NEGATIVE NEGATIVE 11/10/2024 9:05 PM CDT [facility] COCAINE METABOLITES (U) NEGATIVE NEGATIVE 11/10/2024 9:05 PM CDT [facility] METHADONE (U) NEGATIVE NEGATIVE 11/10/2024 9:05 PM CDT [facility] OPIATE SCREEN (U) NEGATIVE NEGATIVE 025 9:05 PM CDT [facility] PHENCYCLIDINE PCP (U) NEGATIVE NEGATIVE 11/10/2024 9:05 PM CDT [facility] Comment: NOTE: RESULTS OF THIS DRUG SCREEN SHOULD BE USED FOR MEDICAL PURPOSES ONLY AND NOT FOR LEGAL OR EMPLOYMENT PURPOSES. POSITIVE RESULTS ARE NOT CONFIRMED. MEDICATIONS CONTAINING EPHEDRINE MAY CAUSE FALSE POSITIVE AMPHETAMINE CALL [phone], LAB, TO REQUEST CONFIRMATION TESTING. IF CREATININE IS <40 mg/dL. RECOLLECTION IS SUGGESTED. AMPHETAMINE- 500 NG/ML BARBITURATE- 200 NG/ML BENZODIAZEPINES- 200 NG/ML THC- 50 NG/ML COCAINE- 150 NG/ML METHADONE- 300 NG/ML OPIATE- 300 MG/ML PCP- 25 NG/ML CREATININE (U) 104.0 28 - 217 MG/DL 11/10/2024 9:05 PM CDT [facility] URINE SPECIMEN / Unknown 11/09/2024 11:00 PM CDT Sanjana Frias MD URINE ORDERABLES Final Resul t Performing Organization Address City/[facility]/ZIP Co de Phone Number [facility] [address] [place] [id number], * TYPE & SCREEN (11/09/2024 11:00 PM CDT) ABO/RH O POSITIVE 11/10/2024 12:59 AM CDT [facility] ANTIBODY SCREEN NEGATIVE 11/10/2024 12:59 AM CDT [facility] SAMPLE EXPIRATION 11/12/2024,2 359 11/10/2024 12:59 AM CDT [facility] 11/09/2024 11:0 0 PM CDT Sanjana Frias MD BLOOD BANK TEST ORDERABLES F inal Result [facility] [address] [place] [address], [place] [phone] * URINALYSIS (11/09/2024 11:00 PM CDT) SPECIMEN TYPE URINE CLEAN CATCH 11/10/2024 7:01 PM CDT [facility] COLOR (U) YELLOW 11/10/2024 8:57 PM CDT [facility] TRANSPARENCY TURBID 11/10/2024 8:57 PM CDT [facility] SPECIFIC GRAVITY (U) 1.019 1.001 - 1.030 11/10/2024 8:57 PM CDT [facility] U PH 7.5 5.0 - 9.0 11/10/2024 8:57 PM CDT [facility] LEUKOCYTES (U) NEGATIVE NEGATIVE 11/10/2024 8:57 PM CDT [facility] NITRITES NEGATIVE NEGATIVE 11/10/2024 8:57 PM CDT [facility] PROTEIN RANDOM (U) NEGATIVE <30 MG/DL 11/10/2024 8:57 PM CDT [facility] GLUCOSE (U) NORMAL NORMAL MG/DL 11/10/2024 8:57 PM CDT [facility] KETONES MG/DL (U) NEGATIVE NEGATIVE MG/DL 11/10/2024 8:57 PM CDT [facility] UROBILINOGEN NORMAL NORMAL MG/DL 11/10/2024 8:57 PM CDT [facility] BILIRUBIN (U) NEGATIVE NEGATIVE MG/DL 11/10/2024 8:57 PM CDT [facility] BLOOD (U) NEGATIVE NEGATIVE 11/10/2024 8:57 PM CDT [facility] URINE SPECIMEN OBTAINED BY CLEAN CATCH PROCEDURE / Unknown 11/09/2024 11:00 PM CDT us Sanjana Frias MD URINE ORDERABLES Final Resul t [facility] [address] [place] [address], [place] [phone] * (ABNORMAL) CBC W/DIFF AUTOMATED (11/09/2024 11:00 PM CDT) Only the most recent of2 resultswithin the time period is included. WBC 5.58 4.5 - 11.0 x10'3/uL 11/09/2024 11:59 PM CDT [facility] RBC 3.98(L) 4.20 - 5.40 x10'6/uL 11/09/2024 11:59 PM CDT [facility] HGB 12.3 12.0 - 16.0 G/DL 11/09/2024 11:59 PM CDT [facility] HCT 36.8(L) 38.0 - 48.0 % 11/09/2024 11:59 PM CDT [facility] MCV 92.5 81.0 - 99.0 FL 11/09/2024 11:59 PM CDT [facility] MCH 30.9 27.0 - 31.0 PG 11/09/2024 11:59 PM CDT [facility] MCHC 33.4 32.0 - 36.0 G/DL 11/09/2024 11:59 PM CDT [facility] RDW 13.7 11.5 - 14.5 % 11/09/2024 11:59 PM CDT [facility] PLT 113(L) 130 - 400 x10'3/uL 11/09/2024 11:59 PM CDT [facility] MPV 13.7(H) 9.3 - 12.2 FL 11/09/2024 11:59 PM CDT [facility] DIFFERENTIAL TYPE AUTOMATED DIFFERENTIAL 11/09/2024 11:59 PM CDT [facility] NEUTROPHILS % 61.4 % 11/09/2024 11:59 PM CDT [facility] LYMPHOCYTES % 29.9 % 11/09/2024 11:59 PM CDT [facility] MONOCYTES % 7.9 % 11/09/2024 11:59 PM CDT [facility] EOSINOPHILS 0.2 % 11/09/2024 11:59 PM CDT [facility] BASOPHILS 0.2 % 11/09/2024 11:59 PM CDT [facility] IMMATURE GRANS % 0.4 % 11/10/19 11:59 PM CDT [facility] ABS. NEUTROPHILS 3.43 1.80 - 7.70 x10'3/uL 11/09/2024 11:59 PM CDT [facility] ABS. LYMPHOCYTES 1.67 1.00 - 4.80 x10'3/uL 11/09/2024 11:59 PM CDT [facility] ABS. MONOCYTES 0.44 0.24 - 0.86 x10'3/uL 11/09/2024 11:59 PM CDT [facility] ABS. EOSINOPHILS 0.01(L) 0.04 - 0.36 x10'3/uL 11/09/2024 11:59 PM CDT [facility] ABS. BASOPHILS 0.01 0.01 - 0.08 x10'3/uL 11/09/2024 11:59 PM CDT [facility] ABS. 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
--- OUTSIDE RECORDS SUMMARY | 2025-01-29 02:34 | XMS_ITS | Clinical Summary ---
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
--- OUTSIDE RECORDS SUMMARY | 2025-01-29 03:08 | XMS_ITS | Clinical Summary ---
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
--- OUTSIDE RECORDS SUMMARY | 2025-01-29 03:08 | XMS_ITS | Clinical Summary ---
Author Organization [facility] Address [facility] [place] [address] Care Team Providers Care Display Manager Name Role Phone None, Provider MD Primary [...] Problem Noted Date Diagnosed Date Vaginal delivery ([facility]) 11/11/2024 ([facility]) 11/09/2024 Resolved Problems Problem Noted Date Diagnosed Date Resolved Date Vaginal delivery ([facility]) 12/30/2022 0 11/11/2024 Normal course ([facility]) 12/30/2022 11/11/2024 ([facility]) 12/28/2022 12/31/19 23 40 weeks gestation of ([facility]) 12/28/2022 12/30/2022 Encounters Date Type Department Care Team Description 11/10/2024 2:41 AM CDT Anesthesia Event [facility] [place] [address] Evy Bui CRNA 11/10/2024 Travel 11/09/2024 9:55 PM CDT - 11/12/2024 2:50 PM T [facility] [place] [address] Sanjana Frias MD (MIOL) Discharge Disposition: Home or Self Care (Routine Discharge) 11/05/2024 7:53 AM CDT - 11/05/2024 9:14 AM [facility] Hospital En[facility] [place] [address] Glynn Mitchell MD (MIOL) Discharge Disposition: Home [...] from your doctor or pharmacy? Always 11/09/2024 [facility] Utilities Answer Date Recorded In the past 12 months has [facility] [email or web address], gas, oil, or water [employer] threatened to shut off services in your [...] How often do you attend chur or shinto services? More than 4 times per year 11/09/2024 Do you belong to any clubs o r organizations such as faith groups, unions, fraternal or athletic groups, or [...] Recorded Patient Health Questionnaire-2 Score 0 11/09/2024 [facility] of Occupat ional Health - Occupational Stress [...] place to sleep or slept in a usp (including now)? No 12/28/2022 Housing Stability Vital Sign Answer Luciano e Recorded In the last 12 months, was t here a time when you were not able to pay the mortgage or rent on time? No 11/09/2024 In the past 12 months, how m any times have you moved where you were living? 1 11/09/2024 At any time in the past 12 m [facility], were you homeless or living in a usp (including now)? No 11/09/2024 Depression Answer Date [...] & SCREEN STAT 11/09/2024 11:00 PM CDT ([facility]) SYPHILIS AB (DIAGNOSTIC) WITH CASCADING REFLEX STAT 11/09/2024 11:00 PM CDT ([facility]) DRUG SCREEN RAPID STAT 11/09/2024 11: 00 PM CDT ([facility]) HC URINALYSIS AUTO W/O MICRO STAT 11/09/2024 11:00 PM CDT ([facility]) CBC W/DIFF AUTOMATED STAT 11/09/2024 11:00 PM CDT ([facility]) CBC W/DIFF AUTOMATED STAT 11/05/2024 8:13 AM CDT ([facility]) from Last 3 Months Results * (ABNORMAL) Hemoglobin and Hematocrit (11/11/2024 6:20 AM CDT) HGB 11.8(L) 12.0 - 16.0 G/DL 11/11/2024 6:36 AM CDT [facility] HCT 35.0(L) 38.0 - 48.0 % 11/11/2024 6:36 AM CDT [facility] 11/11/2024 6:20 AM CDT Sanjana Frias MD LABORATORY Final Result [facility] [address] [place] [address], * Labor Epidural (11/10/2024 3:12 AM CDT) [...] Needle and Catheter: MRI Compatible: MRI UNSAFE ([id number]) Needle type: Tuohy Needle gauge: 17 G Needle length: 3.5 in Needle insertion depth: 6 cm Catheter type: side hole Catheter size: 19 G Catheter at skin depth: 11 cm Test dose: negative and lidocaine 1.5% with epinephrine 1-to-200,000 Needle attempts: 1 Assessment Sensory level: T10 Additional Notes LOT: [id number] EXP: 2025-09-12 Evy Bui CRNA IN ANESTHESIA Final Result * SYPHILIS IGG/IGM AB (11/09/2024 11:00 PM CDT) Pathologist [facility] SYPHILIS IGG IGM AB NON-REACTI VE NON-REACTI VE 11/10/2024 4:36 AM CDT [facility] Comment: No serologic evidence of syphilis. No follow-up necessary unless clinically indicated. 11/09/2024 11:0 0 PM CDT Sanjana Frias MD LABORATORY Final Result [facility] [address] [place] [id number], * DRUG SCREEN RAPID (11/09/2024 11:00 PM CDT) Pathologist [facility] AMPHETAMINE (U) NEGATIVE NEGATIVE 9:05 PM CDT [facility] BARBITURATES SCREEN (U) NEGATIVE NEGATIVE 11/10/2024 9:05 PM CDT [facility] BENZODIAZEPINES SCREEN (U) NEGATIVE NEGATIVE 11/10/2024 9:05 PM CDT [facility] CANNABINOIDS SCREEN (U) NEGATIVE NEGATIVE 11/10/2024 9:05 PM CDT [facility] COCAINE METABOLITES (U) NEGATIVE NEGATIVE 11/10/2024 9:05 PM CDT [facility] METHADONE (U) NEGATIVE NEGATIVE 11/10/2024 9:05 PM CDT [facility] OPIATE SCREEN (U) NEGATIVE NEGATIVE 025 9:05 PM CDT [facility] PHENCYCLIDINE PCP (U) NEGATIVE NEGATIVE 11/10/2024 9:05 PM CDT [facility] Comment: NOTE: RESULTS OF THIS DRUG SCREEN SHOULD BE USED FOR MEDICAL PURPOSES ONLY AND NOT FOR LEGAL OR EMPLOYMENT PURPOSES. POSITIVE RESULTS ARE NOT CONFIRMED. MEDICATIONS CONTAINING EPHEDRINE MAY CAUSE FALSE POSITIVE AMPHETAMINE CALL [phone], LAB, TO REQUEST CONFIRMATION TESTING. IF CREATININE IS <40 mg/dL. RECOLLECTION IS SUGGESTED. AMPHETAMINE- 500 NG/ML BARBITURATE- 200 NG/ML BENZODIAZEPINES- 200 NG/ML THC- 50 NG/ML COCAINE- 150 NG/ML METHADONE- 300 NG/ML OPIATE- 300 MG/ML PCP- 25 NG/ML CREATININE (U) 104.0 28 - 217 MG/DL 11/10/2024 9:05 PM CDT [facility] URINE SPECIMEN / Unknown 11/09/2024 11:00 PM CDT Snajana Frias MD URINE ORDERABLES Final Resul t Performing Organization Address City/[facility]/ZIP Co de Phone Number [facility] [address] [place] [phone], * TYPE & SCREEN (11/09/2024 11:00 PM CDT) ABO/RH O POSITIVE 11/10/2024 12:59 AM CDT [facility] ANTIBODY SCREEN NEGATIVE 11/10/2024 12:59 AM CDT [facility] SAMPLE EXPIRATION 11/12/2024,2 359 11/10/2024 12:59 AM CDT [facility] 11/09/2024 11:0 0 PM CDT Sanjana Frias MD BLOOD BANK TEST ORDERABLES F inal Result [facility] [address] [place] [address], [place] [phone] * URINALYSIS (11/09/2024 11:00 PM CDT) SPECIMEN TYPE URINE CLEAN CATCH 11/10/2024 7:01 PM CDT [facility] COLOR (U) YELLOW 11/10/2024 8:57 PM CDT [facility] TRANSPARENCY TURBID 11/10/2024 8:57 PM CDT [facility] SPECIFIC GRAVITY (U) 1.019 1.001 - 1.030 11/10/2024 8:57 PM CDT [facility] U PH 7.5 5.0 - 9.0 11/10/2024 8:57 PM CDT [facility] LEUKOCYTES (U) NEGATIVE NEGATIVE 11/10/2024 8:57 PM CDT [facility] NITRITES NEGATIVE NEGATIVE 11/10/2024 8:57 PM CDT [facility] PROTEIN RANDOM (U) NEGATIVE <30 MG/DL 11/10/2024 8:57 PM CDT [facility] GLUCOSE (U) NORMAL NORMAL MG/DL 11/10/2024 8:57 PM CDT [facility] KETONES MG/DL (U) NEGATIVE NEGATIVE MG/DL 11/10/2024 8:57 PM CDT [facility] UROBILINOGEN NORMAL NORMAL MG/DL 11/10/2024 8:57 PM CDT [facility] BILIRUBIN (U) NEGATIVE NEGATIVE MG/DL 11/10/2024 8:57 PM CDT [facility] BLOOD (U) NEGATIVE NEGATIVE 11/10/2024 8:57 PM CDT [facility] URINE SPECIMEN OBTAINED BY CLEAN CATCH PROCEDURE / Unknown 11/09/2024 11:00 PM CDT us Sanjana Frias MD URINE ORDERABLES Final Resul t [facility] [address] [place] [address], [place] [phone] * (ABNORMAL) CBC W/DIFF AUTOMATED (11/09/2024 11:00 PM CDT) Only the most recent of2 resultswithin the time period is included. WBC 5.58 4.5 - 11.0 x10'3/uL 11/09/2024 11:59 PM CDT [facility] RBC 3.98(L) 4.20 - 5.40 x10'6/uL 11/09/2024 11:59 PM CDT [facility] HGB 12.3 12.0 - 16.0 G/DL 11/09/2024 11:59 PM CDT [facility] HCT 36.8(L) 38.0 - 48.0 % 11/09/2024 11:59 PM CDT [facility] MCV 92.5 81.0 - 99.0 FL 11/09/2024 11:59 PM CDT [facility] MCH 30.9 27.0 - 31.0 PG 11/09/2024 11:59 PM CDT [facility] MCHC 33.4 32.0 - 36.0 G/DL 11/09/2024 11:59 PM CDT [facility] RDW 13.7 11.5 - 14.5 % 11/09/2024 11:59 PM CDT [facility] PLT 113(L) 130 - 400 x10'3/uL 11/09/2024 11:59 PM CDT [facility] MPV 13.7(H) 9.3 - 12.2 FL 11/09/2024 11:59 PM CDT [facility] DIFFERENTIAL TYPE AUTOMATED DIFFERENTIAL 11/09/2024 11:59 PM CDT [facility] NEUTROPHILS % 61.4 % 11/09/2024 11:59 PM CDT [facility] LYMPHOCYTES % 29.9 % 11/09/2024 11:59 PM CDT [facility] MONOCYTES % 7.9 % 11/09/2024 11:59 PM CDT [facility] EOSINOPHILS 0.2 % 11/09/2024 11:59 PM CDT [facility] BASOPHILS 0.2 % 11/09/2024 11:59 PM CDT [facility] IMMATURE GRANS % 0.4 % 11/10/19 11:59 PM CDT [facility] ABS. NEUTROPHILS 3.43 1.80 - 7.70 x10'3/uL 11/09/2024 11:59 PM CDT [facility] ABS. LYMPHOCYTES 1.67 1.00 - 4.80 x10'3/uL 11/09/2024 11:59 PM CDT [facility] ABS. MONOCYTES 0.44 0.24 - 0.86 x10'3/uL 11/09/2024 11:59 PM CDT [facility] ABS. EOSINOPHILS 0.01(L) 0.04 - 0.36 x10'3/uL 11/09/2024 11:59 PM CDT [facility] ABS. BASOPHILS 0.01 0.01 - 0.08 x10'3/uL 11/09/2024 11:59 PM CDT [facility] ABS. IMMATURE GRANULOCYTES 0.02 0.00 - 0.49 x10'3/uL 11/09/2024 11:59 PM CDT [facility] 11/09/2024 11:0 0 PM CDT us Sanjana Frias MD LABORATORY Final Result [facility] [address] [place] [address], [place] [phone] from Last 3 Months Insurance [employer] Advance Directives * Full Code (Latest Code Status on File) Date Activated Date Inactivated Comments 11/09/2024 10:02 PM 11/12/2024 6:24 PM * Full Code Date Activated Date Inactivated Comments 12/28/2022 9:08 AM 12/30/2022 3:40 PM Care Teams Display Manager Relationship Specialty Start Date End Date None, Provider, PCP - General UNKNOWN PHYSICIAN SPECIALTY 12/28/22
[2025-01-29] MEDS: LACTATED RINGERS 1,000 ML 999 ML IV CONT (03:13)
[2025-01-29] MEDS: ONDANSETRON INJ 4 MG/2 ML VIAL IV PUSH (03:13)
[2025-01-29] MEDS: MORPHINE SULFATE (*CRX) 4 MG/ML INJ IV PUSH (03:13)
--- NOTE | 2025-01-29 03:42 | ED.ABDPAIN ---
HPI - Abdominal Pain General Chief Complaint: Abdominal Pain Stated Complaint: abd pain, seen yesteday, gallbladder removed 01/23 Time Seen by Provider: 01/29/25 03:01 History of Present Illness HPI narrative: 34-year-old female approximately postop day 6 from laparoscopic cholecystectomy with general surgeon Dr. Robertson. Patient presents to the emergency department with recurrent epigastric abdominal discomfort. She was seen in the emergency department yesterday and had an unremarkable workup including normal CT scans and CT angiography scans. She had unremarkable laboratory assessments and felt better before discharge. Patient's family states that she had a recurrence of her epigastric abdominal discomfort today not as severe as it was yesterday but associated with some nausea vomiting. Return to the hospital today for evaluation. They have not yet had a follow-up appointment with her surgeon and were not able to get in contact with the clinic as they were closed today. Patient herself is not any distress but is nauseous and pointing towards her epigastric region where it is hurting. No wound dehiscence or bleeding or any signs of infection near her surgical sites. Was otherwise in her normal state of health. No new injuries or traumatic features. Related Data Home Medications ?Medication ?Instructions ?Recorded ?Confirmed ?Last Taken ?Type famotidine 20 mg tablet mg 01/29/25 Unknown History sucralfate 1 gram tablet 01/29/25 Unknown History Allergies Allergy/AdvReac Type Severity Reaction Status Date / Time No Known Allergies Allergy Verified 01/29/25 02:44 Review of Systems Review of Systems: As reviewed above in HPI [facility] Past Medical History Medical History Healthy female adult Surgical History Surgical History Hx of cholecystectomy Social History Social History Smoking status: Never smoker Substance use: never Substance use type: does not use Living arrangements: with family Spiritual care concerns: No Exam Narrative: GENERAL: [Well-appearing, well-nourished, and in no acute distress.] HEAD: [Normocephalic, atraumatic.] EYES: [PERRLA and EOMI.] ENT: Nares clear, no rhinorrhea or epistaxis. Mucous membranes moist. NECK: Supple. CHEST: [Clear to auscultation. No respiratory distress.] HEART: [Regular rate and rhythm]. No murmur heard. [Normal peripheral pulses.] ABDOMEN: [Soft, nondistended], mildly tender in the epigastric region, no signs of surgical site dehiscence, infection or bleeding. Laparoscopic suture sites intact, [No rigidity or guarding] EXTREMITIES: Normal range of motion. [No edema.] SKIN: Warm, dry, no rash. NEURO: [No focal deficits]. Alert and oriented [x3.] PSYCH: [Normal mood and affect.] Course Vital Signs Vital signs: Vital Signs Temperature 36.7 C 01/29/25 02:41 Pulse Rate 72 01/29/25 02:41 Respiratory Rate 18 01/29/25 02:41 Blood Pressure 165/115 H 01/29/25 02:41 Pulse Oximetry 97 01/29/25 02:41 Oxygen Delivery Room Air 01/29/25 02:41 Temperature 36.7 C 01/29/25 02:41 Pulse Rate 66 01/29/25 03:34 Respiratory Rate 17 01/29/25 03:34 Blood Pressure 161/91 H 01/29/25 03:34 Pulse Oximetry 99 01/29/25 03:34 Oxygen Delivery Room Air 01/29/25 02:41 MDM - Abdominal Pain MDM Narrative Medical decision making narrative: 34-year-old female approximately postop day 6 from laparoscopic cholecystectomy with general surgeon Dr. Robertson. Patient presents to the emergency department with recurrent epigastric abdominal discomfort. She was seen in the emergency department yesterday and had an unremarkable workup including normal CT scans and CT angiography scans. She had unremarkable laboratory assessments and felt better before discharge. Patient's family states that she had a recurrence of her epigastric abdominal discomfort today not as severe as it was yesterday but associated with some nausea vomiting. Return to the hospital today for evaluation. They have not yet had a follow-up appointment with her surgeon and were not able to get in contact with the clinic as they were closed today. Patient herself is not any distress but is nauseous and pointing towards her epigastric region where it is hurting. No wound dehiscence or bleeding or any signs of infection near her surgical sites. Was otherwise in her normal state of health. No new injuries or traumatic features. Repeat laboratory studies obtained at this time including lactic acid, CT scan was reviewed from yesterday without any acute abnormalities. She is afebrile here and overall has reassuring vital signs. Given additional morphine and Zofran as well as fluids. Will contact her general surgeon for recommendations given recurrent symptoms. Patient's LFTs have elevated from her previous levels. Bilirubin of 2.9, AST and ALT of 1600 each. Re-evaluated the patient who is resting comfortably after the morphine. No longer in any pain. Given recurrent epigastric abdominal pain symptoms and elevated LFTs most likely she has a retained gallbladder stone in the common bile duct consistent with choledocholithiasis. I spoke to her general surgeon Dr. Robertson who recommended admission with GI consultation. I spoke to Dr. Jerez for an ERCP after we went over patient's exam and clinical findings as well as lab results. Patient was admitted to surgery with GI consult. Patient and family updated on the plan of care and were comfortable with the plan. P.r.n. medications and fluids ordered. Made NPO at this time. Medical Records Attestation: I reviewed the patient's medical records. Lab Data Attestation: I reviewed the patient's lab results. 01/29/25 03:22 01/29/25 03:22 Labs: Lab Results 01/29/25 Range/Units 03:22 WBC 4.6 (4.5-10.0) K/mm3 RBC 4.25 (4.2-5.4) M/mm3 Hgb 12.7 (12.0-15.0) g/dL Hct 38.5 (37.0-47.0) % MCV 90.6 (80-100) fl MCH 29.9 (26-34) pg MCHC 33.0 (32-36) g/dl RDW 12.4 (11.5-14.5) % Plt Count 170 (150-375) k/mm3 MPV 11.9 H (7.4-10.4) fl Immature Gran % (Auto) 0.2 (0-0.5) % Neut % (Auto) 59.0 (45.5-73.1) % Lymph % (Auto) 29.2 (18.3-44.2) % [place] % (Auto) 9.8 H (2.6-8.5) % Eos % (Auto) 1.1 (0-4.4) % Baso % (Auto) 0.7 (0.2-1.2) % Lymph # (Auto) 1.34 (0.9-3.2) K/mm3 [place] # (Auto) 0.5 (0.1-0.6) K/mm3 Eos # (Auto) 0.1 (0-0.3) K/mm3 Baso # (Auto) 0.0 (0.0-0.1) K/mm3 Abs Immat Gran (auto) 0.01 (0.00-0.031) K/mm3 Absolute Neuts (auto) 2.7 (1.3-6.7) K/mm3 Absolute Nucleated RBC 0.000 (0.0-0.012) K/mm3 Nucleated RBC % 0.0 (0.0-0.2) % Sodium 140 (137-145) mmol/L Potassium 3.5 (3.4-5.0) mmol/L Chloride 103 (98-107) mmol/L Carbon Dioxide 28 (22-30) mmol/L Anion Gap 9 (4-12) mmol/L BUN 10 (7-17) mg/dL Creatinine 0.55 L (0.7-1.0) mg/dL Estim Creat Clear Calc 131 ml/min Estimated GFR > 60 (59 - ) Glucose 110 (65-110) mg/dL Lactic Acid 0.7 (0.7-2.0) mmol/L Calcium 9.8 (8.4-10.2) mg/dL Total Bilirubin 2.9 H (0.2-1.3) mg/dL AST 1661 H (14-36) U/L ALT 1318 H (6-35) U/L Alkaline Phosphatase 332 H (38-126) U/L Total Protein 8.1 (6.3-8.2) g/dL Albumin 4.6 (3.5-5.1) g/dL Lipase 52 (23-300) U/L Imaging Data Attestation: I personally reviewed and interpreted this imaging study as follows: Discharge Plan Discharge Clinical Impression: Choledocholithiasis, Elevated LFTs Patient Disposition: Still a Patient Condition: Stable Instructions: Antibiotic Form Patient Language: Nam[place] Prescriptions: No Action hydrocodone-acetaminophen 5-325 mg tablet 1 tablet PO Q4H PRN (Reason: pain) Qty: 10 0RF sucralfate 1 gram tablet famotidine 20 mg tablet Follow-up/Referrals: Cristel,Johanna Beckham CNM [Primary Care Provider] - Time of Disposition: 04:50
[2025-01-29 03:48] LABS: Albumin Level 4.6 g/dL (3.5-5.1); Alkaline Phosphatase 332 U/L (38-126); Anion Gap 9 mmol/L (4-12); Bilirubin,Total 2.9 mg/dL (0.2-1.3); Blood Urea Nitrogen 10 mg/dL (7-17); Calcium 9.8 mg/dL (8.4-10.2); Carbon Dioxide 28 mmol/L (22-30); Chloride 103 mmol/L (98-107); Estimated CRCL calculation 131 ml/min; Estimated Glomerular Filt Rate > 60; Glucose 110 mg/dL (65-110); Lipase 52 U/L (23-300); Potassium 3.5 mmol/L (3.4-5.0); Sodium 140 mmol/L (137-145); Total Protein 8.1 g/dL (6.3-8.2)
[2025-01-29 03:51] LABS: Hematocrit 38.5 % (37.0-47.0); Hemoglobin 12.7 g/dL (12.0-15.0); Immature Granulocyte Percent A 0.2 % (0-0.5); Lymphocytes Absolute Auto 1.34 K/mm3 (0.9-3.2); Mean Corpuscular HGB Conc 33.0 g/dl (32-36); Mean Corpuscular Hemoglobin 29.9 pg (26-34); Mean Corpuscular Volume 90.6 fl (80-100); Nucleated Red Blood Cells Absolute Auto 0.000 K/mm3 (0.0-0.012); Nucleated Red Blood Cells Perc 0.0 % (0.0-0.2); Platelet Count Result 170 k/mm3 (150-375); Red Blood Count 4.25 M/mm3 (4.2-5.4); White Blood Count 4.6 K/mm3 (4.5-10.0)
[2025-01-29 04:06] LABS: Alanine Aminotransferase 1318 U/L (6-35)
[2025-01-29 04:13] LABS: Aspartate Amino Transferase 1661 U/L (14-36)
--- NOTE | 2025-01-29 05:40 | ADMGEN ---
This patient, Radames Gamez, was admitted to 3 Medical Room 347-. Patient/family oriented to hospital policies and general routines including ID bracelet, bed and alarms, visiting hours, pain management, procedures, bathroom and other care routines, personal items, smoking policy, room service/diet, and visiting hours. Information on how to activate the Rapid Response Team has been discussed. Patient/Family are encouraged to report perceived risks to care and to ask questions if they do not understand what they are told or what they should do.
[2025-01-29] MEDS: LACTATED RINGERS 1,000 ML 125 ML IV CONT (06:23)
--- NOTE | 2025-01-29 12:52 | P.HP_ITS ---
H&P: HPI History of Present Illness Date/Time: 01/29/25 12:52 Chief Complaint: Upper abdominal pain Narrative: This is a 34-year-old woman who presented to the emergency department on 01/29/2025 with severe upper abdominal pain. She is status post laparoscopic cholecystectomy on 01/23/2025. She was doing well initially postoperatively other than some surgical pain. On 01/27/2025 she had undergone a root canal and was sent home with oral antibiotics. She had taken the amoxicillin and began experiencing extreme abdominal pain and nausea and vomiting afterwards. She was then taken by ambulance to the emergency department and CT and lab work was performed that night 01/27/2025. Her liver enzymes were mildly elevated but CT appeared normal for the postoperative findings. She also had a normal white b lood count. She was discharged from the emergency department but then yesterday began experiencing worsening abdominal pain again. She has noticed some darker urine yesterday and today. She was taken back to the emergency department and labs were repeated. Her bilirubin had increased from 1-2.9. Her AST and ALT were also significantly elevated. No repeat imaging was done yet. She was admitted for observation and for further workup and treatment. Review of Systems Review of Systems: All systems reviewed & are unremarkable except as noted in HPI and below Constitutional: Constitutional: Denies chills and Denies fever(s) Eyes: Eyes: Denies change in vision ENT: Denies hearing loss, Denies neck pain and Denies sore throat Cardiovascular: Cardiovascular: Denies chest pain and Denies dyspnea Respiratory: Respiratory: Denies cough, Denies dyspnea and Denies wheezing Gastrointestinal: Gastrointestinal: Reports as per HPI Genitourinary: Genitourinary: Denies hematuria and Denies dysuria Musculoskeletal: Musculoskeletal: Denies arthralgias, Denies joint swelling and Denies neck pain Allergic/Immunologic: Allergic/Immunologic: Denies wheezing PMFSH Past Medical History Medical History Healthy female adult Surgical History Surgical History Hx of cholecystectomy Social History Social History Smoking status: Never smoker Alcohol intake: never Substance use: never Substance use type: does not use Lack of Transportation: No Lack of Food: Never True Current Housing: I Have Housing Concerned About Future Housing: No Difficulty Paying Gas/Electric Bills: No Difficulty Paying for Meds: No Currently Unemployed: No Education: High School Diploma/GED Difficulty w/ Childcare or Family Care: No Living arrangements: with family Spiritual care concerns: Yes (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) Meds Home Medications and Allergies Home Medications ?Medication ?Instructions ?Recorded ?Confirmed ?Type hydrocodone 5 mg-acetaminophen 325 1 tablet PO Q4H PRN pain #10 tabs 01/23/25 01/29/25 Rx mg tablet famotidine 20 mg tablet 20 mg PO BID 01/29/25 01/29/25 History sucralfate 1 gram tablet 1 g PO QID PRN reflux 01/29/25 01/29/25 History Allergies Allergy/AdvReac Type Severity Reaction Status Date / Time No Known Allergies Allergy Verified 01/29/25 02:44 Vital Signs Vital Signs - 24 hr 01/29/25 02:41 01/29/25 03:34 01/29/25 05:30 Temperature 98.1 F Pulse Rate 72 66 62 Respiratory Rate 18 17 17 Blood Pressure 165/115 H 161/91 H 149/91 H Pulse Oximetry 97 99 96 Oxygen Delivery Room Air 01/29/25 06:43 01/29/25 09:42 Temperature Pulse Rate 62 Respiratory Rate 17 Blood Pressure Pulse Oximetry 96 Oxygen Delivery Room Air Room Air Exam Const: General: alert; No acute distress Orientation/consciousness: patient oriented x3 Limitations: no limitations HENMT: Head: normocephalic and atraumatic Ears: hearing grossly normal bila terally Face/Nose/Sinus: Normal external nose present and Normal nares present Mouth: Yes Normal oral and palatal mucosa present and Yes moist muc ous membranes Eyes: General: appearance normal, both eyes and all related structures Conjunctivae: conjunctivae normal Sclera: sclerae normal Pupils: Equal, round and reactive pupils present EOM: EOMs intact bilaterally Neck: Neck: normal visual inspection, full ROM, no lymphadenopathy, supple and no JVD Lymphatic: no lymphadenopathy noted Chest: Chest palpation & inspection: normal inspection of the chest Resp: Effort & Inspection: normal respiratory effort and able to speak in complete sentences Auscultation: clear to auscultation bilaterally Percussion: percussion normal Cardio: Jugular venous distension: no JVD Rate: regular rate Rhythm: regular rhythm Heart sounds: S1 normal heart sound present and S2 normal heart sound present Peripheral pulses: Peripheral pulses 2+ throughout GI: Inspection: normal to inspection and incision (Incisions intact with glue) GI Palp: Yes Soft to palpation, Yes Tenderness to palpation present (GI) (Mild upper abdominal) and No Guarding due to palpation present (GI) Auscultation: normal bowel sounds : General: Yes no CVA tenderness Back/Spine/Pelvis: Back: no CVA tenderness Skin: General skin exam: normal color and dry skin Neuro: General: patient oriented x3, gait normal, moves all extremities, no focal motor deficits and CN's II-XI intact bilaterally Cranial nerves: Yes Equal, round and reactive pupils present Speech: normal speech Extrem: General: normal to inspection and capillary refill normal H&P: Results Labs Labs: Short CBC 01/29/25 Range/Units 03:22 WBC 4.6 (4.5-10.0) K/mm3 Hgb 12.7 (12.0-15.0) g/dL Hct 38.5 (37.0-47.0) % Plt Count 170 (150-375) k/mm3 BMP 01/29/25 03:22 Sodium 140 Potassium 3.5 Chloride 103 Carbon Dioxide 28 BUN 10 Creatinine 0.55 L Glucose 110 Calcium 9.8 Liver Function 01/29/25 Range/Units 03:22 Total Bilirubin 2.9 H (0.2-1.3) mg/dL AST 1661 H (14-36) U/L ALT 1318 H (6-35) U/L Alkaline Phosphatase 332 H (38-126) U/L Albumin 4.6 (3.5-5.1) g/dL Assessment and Plan Assessment and plan (1) Symptomatic cholelithiasis: Code(s): K80.20 - Calculus of gallbladder without cholecystitis without obstruction Status: Acute Assessment and Plan: * I reviewed her CT from the emergency department 2 days ago. This appeared to mostly have normal postoperative findings. There is no findings of a large fluid collection suggestive of a bile leak. The recent elevation of the liver enzymes postoperatively is suggested of of a possible common bile duct stone. Patient has been placed in observation in the hospital. Will consult GI for evaluation and recommendations. Will allow clear liquid diet today and then NPO after midnight. (2) Elevated LFTs: Code(s): R79.89 - Other specified abnormal findings of blood chemistry Status: Acute Hospitalist MIPS Medication Reconciliation I have utilized all available resources to obtain, update and review the patients current medications (includes all prescriptions, OTC, herbals, cannabis, and nutritional supplements).: Yes
[2025-01-29] MEDS: LACTATED RINGERS 1,000 ML 100 ML IV CONT ×2 (13:56→23:56)
--- NOTE | 2025-01-29 15:49 | P.CONGI_ITS ---
Assessment and Plan Assessment and plan (1) Elevated LFTs: Code(s): R79.89 - Other specified abnormal findings of blood chemistry Status: Acute Assessment and Plan: differential diagnosed includes DILI from recent antibiotic use- amoxicillin is associated with rare but clinically significant elevations in liver enzymes. These elevations can reflect underlying drug-induced liver injury (DILI). Of course other possibility- sludge, choledocholithiasis, even bile leak (negative in recent CT scan) since had recent lap jun- will get MRCP get hepatitis serology more recommendations after mrcp? (2) Abdominal pain: Qualifiers: Abdominal location: epigastric Qualified Code(s): R10.13 - Epigastric pain Code(s): R10.9 - Unspecified abdominal pain Status: Acute Assessment and Plan: better (3) Nausea and vomiting in adult: Code(s): R11.2 - Nausea with vomiting, unspecified Status: Acute (4) Hx of cholecystectomy: Code(s): Z90.49 - Acquired absence of other specified parts of digestive tract Status: Acute GI Consult Note Consult date/time: 01/29/25 15:49 Reason for consult: elevated liver enzymes HPI: Radames Gamez is a 34 year old female who presented to the emergency department on 01/29/2025 with severe upper abdominal pain. She is status post laparoscopic cholecystectomy on 01/23/2025. She was doing well initially postoperatively other than some surgical pain until 01/27/2025 she had root canal and was sent home with amoxicillin and 3-4 hours taking medication developed extreme abdominal pain and nausea and vomiting afterwards. She was then taken by ambulance to the emergency department and CT and lab work was performed that night with liver enzymes mildly elevated, CT appeared normal for the postoperative findings. She also had a normal white blood count. She was discharged from the emergency department but came back after more pain. Bilirubin had increased from 1-2.9. Her AST and ALT were also significantly elevated. CT scan no bile leak, no major findings other than expected after cholecystectomy. Pain has improved. Review of Systems 2 Review of Systems: All systems reviewed & are unremarkable except as noted in HPI and below Constitutional: Constitutional: Denies chills and Denies fever(s) Eyes: Eyes: Denies change in vision ENT: Denies hearing loss, Denies neck pain and Denies sore throat Cardiovascular: Cardiovascular: Denies chest pain and Denies dyspnea Respiratory: Respiratory: Denies cough, Denies dyspnea and Denies wheezing Gastrointestinal: Gastrointestinal: Reports as per HPI Genitourinary: Genitourinary: Denies hematuria and Denies dysuria Musculoskeletal: Musculoskeletal: Denies arthralgias, Denies joint swelling and Denies neck pain Allergic/Immunologic: Allergic/Immunologic: Denies wheezing [facility] Past Medical History Medical History (Updated 01/29/25 @ 15:54 by Jeremias Gibson MD) Nausea and vomiting in adult Healthy female adult Surgical History Surgical History (Updated 01/29/25 @ 15:54 by Jeremias Gibson MD) Hx of cholecystectomy Social History Social History Smoking status: Never smoker Alcohol intake: never Substance use: never Substance use type: does not use Lack of Transportation: No Lack of Food: Never True Current Housing: I Have Housing Concerned About Future Housing: No Difficulty Paying Gas/Electric Bills: No Difficulty Paying for Meds: No Currently Unemployed: No Education: High School Diploma/GED Difficulty w/ Childcare or Family Care: No Living arrangements: with family Spiritual care concerns: Yes (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) Meds Home Medications and Allergies Home Medications ?Medication ?Instructions ?Recorded ?Confirmed ?Type hydrocodone 5 mg-acetaminophen 325 1 tablet PO Q4H PRN pain #10 tabs 01/23/25 01/29/25 Rx mg tablet famotidine 20 mg tablet 20 mg PO BID 01/29/25 01/29/25 History sucralfate 1 gram tablet 1 g PO QID PRN reflux 01/29/25 01/29/25 History Allergies Allergy/AdvReac Type Severity Reaction Status Date / Time No Known Allergies Allergy Verified 01/29/25 02:44 Vital Signs Vital Signs - 24 hr 01/29/25 02:41 01/29/25 03:34 01/29/25 05:30 Temperature 98.1 F Pulse Rate 72 66 62 Respiratory Rate 18 17 17 Blood Pressure 165/115 H 161/91 H 149/91 H Pulse Oximetry 97 99 96 Oxygen Delivery Room Air 01/29/25 06:43 01/29/25 09:42 Temperature Pulse Rate 62 Respiratory Rate 17 Blood Pressure Pulse Oximetry 96 Oxygen Delivery Room Air Room Air Exam 2 Const: General: alert; No acute distress Orientation/consciousness: patient oriented x3 Limitations: no limitations HENMT: Head: normocephalic and atraumatic Ears: hearing grossly normal bilaterally Eyes: General: appearance normal, both eyes and all related structures C onjunctivae: conjunctivae normal Neck: Neck: normal visual inspection, full ROM and supple Chest: Chest palpation & inspection: normal inspection of the chest Resp: Effort & Inspection: normal respiratory effort and able to speak in complete sentences Cardio: Jugular venous distension: no JVD Rate: regular rate Rhythm: r egular rhythm GI: Inspection: normal to inspection and incision (Incisions intact with glue) GI Palp: Yes Soft to palpation, Yes Tenderness to palpation present (GI) (Mild upper abdominal) and No Guarding due to palpation present (GI) A uscultation: normal bowel sounds : General: Yes no CVA tenderness Back/Spine/Pelvis: Back: no CVA tenderness Skin: General skin exam: normal color and dry skin Neuro: General: patient oriented x3, gait normal, moves all extremities and CN's II-XI intact bilaterally Cranial nerves: Yes Equal, round and reactive pupils present Speech: normal speech Extrem: General: normal to inspection Results Labs 01/29/25 03:22 01/29/25 03:22 Labs: Short CBC 01/29/25 Range/Units 03:22 WBC 4.6 (4.5-10.0) K/mm3 Hgb 12.7 (12.0-15.0) g/dL Hct 38.5 (37.0-47.0) % Plt Count 170 (150-375) k/mm3 BMP 01/29/25 03:22 Sodium 140 Potassium 3.5 Chloride 103 Carbon Dioxide 28 BUN 10 Creatinine 0.55 L Glucose 110 Calcium 9.8 Liver Function 01/29/25 Range/Units 03:22 Total Bilirubin 2.9 H (0.2-1.3) mg/dL AST 1661 H (14-36) U/L ALT 1318 H (6-35) U/L Alkaline Phosphatase 332 H (38-126) U/L Albumin 4.6 (3.5-5.1) g/dL
[2025-01-29] MEDS: ACETAMINOPHEN 325 MG TABLET 650 MG PO (15:56)
[2025-01-29] MEDS: HYDROcodone/acetaminophen (*CRX) 5-325 MG TABLET 1 TAB PO (22:34)
[2025-01-30 04:57] LABS: Hematocrit 37.8 % (37.0-47.0); Hemoglobin 12.3 g/dL (12.0-15.0); Mean Corpuscular HGB Conc 32.5 g/dl (32-36); Mean Corpuscular Hemoglobin 29.8 pg (26-34); Mean Corpuscular Volume 91.5 fl (80-100); Platelet Count Result 146 k/mm3 (150-375); Red Blood Count 4.13 M/mm3 (4.2-5.4); White Blood Count 4.1 K/mm3 (4.5-10.0)
[2025-01-30 05:35] LABS: Albumin Level 3.9 g/dL (3.5-5.1); Alkaline Phosphatase 294 U/L (38-126); Anion Gap 6 mmol/L (4-12); Aspartate Amino Transferase 627 U/L (14-36); Bilirubin,Total 2.9 mg/dL (0.2-1.3); Blood Urea Nitrogen 2 mg/dL (7-17); Calcium 9.0 mg/dL (8.4-10.2); Carbon Dioxide 27 mmol/L (22-30); Chloride 104 mmol/L (98-107); Estimated CRCL calculation 149 ml/min; Estimated Glomerular Filt Rate > 60; Glucose 92 mg/dL (65-110); Potassium 3.3 mmol/L (3.4-5.0); Sodium 137 mmol/L (137-145); Total Protein 7.0 g/dL (6.3-8.2)
[2025-01-30 05:45] LABS: Alanine Aminotransferase 999 U/L (6-35)
[2025-01-30 05:58] LABS: Hepatitis B Surface Antigen Negative (Negative)
[2025-01-30 06:00] VITALS: BP 146/91; PULSE 72; RESP 20; TEMP 36.2; O2SAT 98
[2025-01-30 06:04] LABS: HAV RESULT Negative (Negative); Hepatitis B Core IgM Result Negative (Negative)
[2025-01-30] MEDS: LACTATED RINGERS 1,000 ML 100 ML IV CONT ×2 (09:29→21:18)
--- NOTE | 2025-01-30 10:00 | PC.NURSE ---
Off unit to Radiology
--- NOTE | 2025-01-30 10:10 | P.PNGS_ITS ---
Progress Note: A&P Assessment and Plan (1) Symptomatic cholelithiasis: Code(s): K80.20 - Calculus of gallbladder without cholecystitis without obstruction Status: Acute Assessment and Plan: * CT demonstrated normal postoperative findings. No suspicion for bile leak. Bilirubin and liver enzymes remain elevated. Patient evaluated by GI who ordered MRCP for today. If stone in common bile duct, patient will undergo ERCP. This procedure was discussed with patient. Continue NPO. We will follow up with results from MRCP. (2) Elevated LFTs: Code(s): R79.89 - Other specified abnormal findings of blood chemistry Status: Acute Plan Discussed patient's case and plan of care with Dr. Robertson. Subjective Subjective Date/Time Seen: 01/30/25 10:10 Patient reports: no new complaints Interval history: Patient is doing well today. Notes less abdominal pain. MRCP planned for today and discussed with patient. Normal WBC. Bilirubin 0.8. Liver enzymes elevated. Exam Narrative: Exam limited as patient was breast-feeding her baby upon interview. Const: General: comfortable and no acute distress Eyes: General: appearance normal, both eyes and all related structures Neck: Neck: supple Resp: Effort & Inspection: normal respiratory effort Cardio: Rate: regular rate GI: Other: Exam limited patient breast-feeding her baby upon interview. Patient notes less abdominal pain. No drainage or changes to incisions. Psych: Mental Status: mental status grossly normal Objective Data Vital Signs Vital Signs: Vital Signs - 24 hr 01/29/25 14:00 01/29/25 20:00 01/29/25 21:40 Temperature 98.2 F Pulse Rate 66 66 Respiratory Rate 18 18 Blood Pressure 144/90 H Pulse Oximetry 99 96 96 Oxygen Delivery Room Air Room Air 01/29/25 22:00 01/30/25 06:00 Temperature 98.5 F 97.2 F L Pulse Rate 66 72 Respiratory Rate 20 20 Blood Pressure 154/94 H 146/91 H Pulse Oximetry 99 98 Oxygen Delivery Intake/Output Intake/Output: Intake & Output 01/27/25 01/28/25 01/29/25 01/30/25 23:59 23:59 23:59 23:59 Intake Total 4600.0 1000 Balance 4600.0 1000 Meds/Results Medications: Active Medications Generic Name Dose Route Start Last Admin Trade Name Freq PRN Reason Stop Dose Admin Acetaminophen 650 mg 01/29/25 04:14 01/29/25 15:56 Acetaminophen 325 Mg Tablet PO 650 mg Q4H PRN Administration Mild Pain (1-3) or Fever Hydrocodone Bitart/Acetaminophen 1 tab 01/29/25 04:14 01/29/25 22:34 Hydrocodone/Acetaminophen (*Crx) 5-325 Mg Tablet PO 1 tab Q4H PRN Administration Pain Rated 4-6 Lactated Ringer's 1,000 mls @ 100 mls/hr 01/29/25 04:15 01/30/25 09:29 Lr - Lactated Ringers Iv IV CONT 100 mls/hr .Q10H DALTON Administration Morphine Sulfate 2 mg 01/29/25 04:14 Morphine Sulfate (*Crx) 2 Mg/Ml Inj IV PUSH Q2H PRN Pain Rated 7-10 Ondansetron HCl 4 mg 01/29/25 04:14 Ondansetron Inj 4 Mg/2 Ml Vial IV PUSH Q4H PRN Nausea Labs Labs: Laboratory Results - last 24 hr 01/30/25 04:50 WBC 4.1 L RBC 4.13 L Hgb 12.3 Hct 37.8 MCV 91.5 MCH 29.8 MCHC 32.5 RDW 12.6 Plt Count 146 L MPV 11.2 H Sodium 137 Potassium 3.3 L Chloride 104 Carbon Dioxide 27 Anion Gap 6 BUN 2 L D Creatinine 0.46 L Estim Creat Clear Calc 149 Estimated GFR > 60 Glucose 92 Calcium 9.0 Total Bilirubin 2.9 H Direct Bilirubin 0.8 H AST 627 H ALT 999 H Alkaline Phosphatase 294 H Total Protein 7.0 Albumin 3.9 Hepatitis A IgM Ab Negative Hep Bs Antigen Negative Hep B Core IgM Ab Negative Hepatitis C Ab Screen Negative
[2025-01-30 14:15] VITALS: BP 136/100; PULSE 69; RESP 12; TEMP 36.9; O2SAT 99
[2025-01-30 16:11] VITALS: BP 134/88
--- NOTE | 2025-01-30 18:03 | WPDGIPROGNO ---
Progress Note: A&P Assessment and Plan (1) Elevated LFTs: Code(s): R79.89 - Other specified abnormal findings of blood chemistry Status: Acute Assessment and Plan: mrcp reviewed, no complications, no leak, no stones wonder if elevated lft could have been DILI from recent antibiotic use trend liver enzymes she is almost asymptomatic now advance diet (2) Nausea and vomiting in adult: Code(s): R11.2 - Nausea with vomiting, unspecified Status: Acute Assessment and Plan: resolved (3) RUQ pain: Code(s): R10.11 - Right upper quadrant pain Status: Acute (4) Hx of cholecystectomy: Code(s): Z90.49 - Acquired absence of other specified parts of digestive tract Status: Acute Subjective Date/time seen: 01/30/25 18:03 Interval history: no more pain or nausea, doing well she is breatfeeding Review of Systems Review of Systems: All systems reviewed & are unremarkable except as noted in HPI and below Exam Const: General: alert; No acute distress Orientation/consciousness: patient oriented x3 Limitations: no limitations HENMT: Head: normocephalic and atraumatic Ears: hearing grossly normal bilaterally Eyes: General: appearance normal, both eyes and all related structures Neck: Neck: normal visual inspection, full ROM and supple Chest: Chest palpation & inspection: normal inspection of the chest Resp: Effort & Inspection: normal respiratory effort and able to speak in complete sentences Cardio: Jugular venous distension: no JVD Rate: regular rate Rhythm: regular rhythm GI: Inspection: normal to inspection and incision (Incisions intact with glue) GI Palp: Yes Soft to palpation and No Guarding due to palpation present (GI) Auscultation: normal bowel sounds : General: Yes no CVA tenderness Back/Spine/Pelvis: Back: no CVA tenderness Skin: General skin exam: normal color and dry skin Neuro: General: patient oriented x3, gait normal and moves all extremities Cranial nerves: Yes Equal, round and reactive pupils present Speech: normal speech Extrem: General: normal to inspection Objective Data Vital Signs Vital Signs: Vital Signs - 24 hr 01/29/25 20:00 01/29/25 21:40 01/29/25 22:00 Temperature 98.5 F Pulse Rate 66 66 Respiratory Rate 18 20 Blood Pressure 154/94 H Pulse Oximetry 96 96 99 Oxygen Delivery Room Air Room Air 01/30/25 06:00 01/30/25 08:30 01/30/25 14:15 Temperature 97.2 F L 98.4 F Pulse Rate 72 69 Respiratory Rate 20 12 Blood Pressure 146/91 H 136/100 H Pulse Oximetry 98 99 Oxygen Delivery Room Air 01/30/25 16:11 Temperature Pulse Rate Respiratory Rate Blood Pressure 134/88 Pulse Oximetry Oxygen Delivery Intake/Output Intake/Output: Intake & Output 01/27/25 01/28/25 01/29/25 01/30/25 23:59 23:59 23:59 23:59 Intake Total 4600.0 1000 Balance 4600.0 1000 Meds/Results Medications: Active Medications Generic Name Dose Route Start Last Admin Trade Name Freq PRN Reason Stop Dose Admin Acetaminophen 650 mg 01/29/25 04:14 01/29/25 15:56 Acetaminophen 325 Mg Tablet PO 650 mg Q4H PRN Administration Mild Pain (1-3) or Fever Hydrocodone Bitart/Acetaminophen 1 tab 01/29/25 04:14 01/29/25 22:34 Hydrocodone/Acetaminophen (*Crx) 5-325 Mg Tablet PO 1 tab Q4H PRN Administration Pain Rated 4-6 Lactated Ringer's 1,000 mls @ 100 mls/hr 01/29/25 04:15 01/30/25 09:29 Lr - Lactated Ringers Iv IV CONT 100 mls/hr .Q10H D[place]TON Administration Morphine Sulfate 2 mg 01/29/25 04:14 Morphine Sulfate (*Crx) 2 Mg/Ml Inj IV PUSH Q2H PRN Pain Rated 7-10 Ondansetron HCl 4 mg 01/29/25 04:14 Ondansetron Inj 4 Mg/2 Ml Vial IV PUSH Q4H PRN Nausea Radiology Results: ITS Impressions MRCP 01/30/25 12:17 IMPRESSION: 1. Expected appearance post recent cholecystectomy with mild stranding at the gallbladder fossa. 2. Otherwise unremarkable MRCP with no biliary ductal dilation or filling defects to suggest choledocholithiasis. Labs Labs: Laboratory Results - last 24 hr 01/30/25 04:50 WBC 4.1 L RBC 4.13 L Hgb 12.3 Hct 37.8 MCV 91.5 MCH 29.8 MCHC 32.5 RDW 12.6 Plt Count 146 L MPV 11.2 H Sodium 137 Potassium 3.3 L Chloride 104 Carbon Dioxide 27 Anion Gap 6 BUN 2 L D Creatinine 0.46 L Estim Creat Clear Calc 149 Estimated GFR > 60 Glucose 92 Calcium 9.0 Total Bilirubin 2.9 H Direct Bilirubin 0.8 H AST 627 H ALT 999 H Alkaline Phosphatase 294 H Total Protein 7.0 Albumin 3.9 Hepatitis A IgM Ab Negative Hep Bs Antigen Negative Hep B Core IgM Ab Negative Hepatitis C Ab Screen Negative
[2025-01-30 22:00] VITALS: BP 123/87; PULSE 86; RESP 20; TEMP 36.7; O2SAT 100
[2025-01-31 06:00] VITALS: BP 133/87; PULSE 83; RESP 20; TEMP 36.3; O2SAT 98
[2025-01-31] MEDS: LACTATED RINGERS 1,000 ML 100 ML IV CONT (06:44)
[2025-01-31 09:10] LABS: Hematocrit 38.8 % (37.0-47.0); Hemoglobin 12.9 g/dL (12.0-15.0); Mean Corpuscular HGB Conc 33.2 g/dl (32-36); Mean Corpuscular Hemoglobin 30.1 pg (26-34); Mean Corpuscular Volume 90.7 fl (80-100); Platelet Count Result 152 k/mm3 (150-375); Red Blood Count 4.28 M/mm3 (4.2-5.4); White Blood Count 4.1 K/mm3 (4.5-10.0)
[2025-01-31 09:32] LABS: Alanine Aminotransferase 657 U/L (6-35); Albumin Level 3.9 g/dL (3.5-5.1); Alkaline Phosphatase 242 U/L (38-126); Anion Gap 7 mmol/L (4-12); Aspartate Amino Transferase 141 U/L (14-36); Bilirubin,Total 0.8 mg/dL (0.2-1.3); Blood Urea Nitrogen 8 mg/dL (7-17); Calcium 9.3 mg/dL (8.4-10.2); Carbon Dioxide 28 mmol/L (22-30); Chloride 104 mmol/L (98-107); Estimated CRCL calculation 138 ml/min; Estimated Glomerular Filt Rate > 60; Glucose 94 mg/dL (65-110); Potassium 3.3 mmol/L (3.4-5.0); Sodium 139 mmol/L (137-145); Total Protein 7.0 g/dL (6.3-8.2)
--- NOTE | 2025-01-31 11:02 | P.PNGS_ITS ---
Progress Note: A&P Assessment and Plan (1) Symptomatic cholelithiasis: Code(s): K80.20 - Calculus of gallbladder without cholecystitis without obstruction Status: Acute Assessment and Plan: * MRCP did not show any stone in the common bile duct or any other abnormalities to suggest choledocholithiasis. It can be assumed that elevation in liver enzymes could have been due to DILI from recent antibiotic use for root canal procedure. Bilirubin back down to normal levels. Other liver enzymes decreasing. Minimal pain. * Potassium 3.3. Repleted with 20 mEq oral KCL. * WBC 4.1. Will discuss with surgeon to see if other antibiotics are recommended to replace amoxicillin or if she is okay to discontinue all oral antibiotics. * Surgically stable for discharge. (2) Elevated LFTs: Code(s): R79.89 - Other specified abnormal findings of blood chemistry Status: Acute Plan Discussed patient's case and plan of care with Dr. Robertson. Subjective Subjective Date/Time Seen: 01/31/25 11:02 Patient reports: no new complaints, feels better, tolerating a regular diet and voiding w/o difficulty Interval history: Patient doing well today. No acute events overnight. Minimal pain. Afebrile with low white blood cell count. Bilirubin normalized to 0.8. Other liver enzymes continue to decrease. Exam Const: General: comfortable and no acute distress GI: Inspection: non-distended GI Palp: Yes Soft to palpation, No Tenderness to palpation present (GI) and No Guarding due to palpation present (GI) Auscultation: normal bowel sounds Other: Incisions clean and dry with glue intact. No signs of infection, tissue necrosis, dehiscence. Objective Data Vital Signs Vital Signs: Vital Signs - 24 hr 01/30/25 14:15 01/30/25 16:11 01/30/25 22:00 Temperature 98.4 F 98.0 F Pulse Rate 69 86 Respiratory Rate 12 20 Blood Pressure 136/100 H 134/88 123/87 Pulse Oximetry 99 100 01/31/25 06:00 Temperature 97.3 F L Pulse Rate 83 Respiratory Rate 20 Blood Pressure 133/87 Pulse Oximetry 98 Intake/Output Intake/Output: Intake & Output 01/28/25 01/29/25 01/30/25 01/31/25 23:59 23:59 23:59 23:59 Intake Total 4600.0 2200 1663.3 Balance 4600.0 2200 1663.3 Meds/Results Medications: Active Medications Generic Name Dose Route Start Last Admin Trade Name Josh PRN Reason Stop Dose Admin Acetaminophen 650 mg 01/29/25 04:14 01/29/25 15:56 Acetaminophen 325 Mg Tablet PO 650 mg Q4H PRN Administration Mild Pain (1-3) or Fever Hydrocodone Bitart/Acetaminophen 1 tab 01/29/25 04:14 01/29/25 22:34 Hydrocodone/Acetaminophen (*Crx) 5-325 Mg Tablet PO 1 tab Q4H PRN Administration Pain Rated 4-6 Morphine Sulfate 2 mg 01/29/25 04:14 Morphine Sulfate (*Crx) 2 Mg/Ml Inj IV PUSH Q2H PRN Pain Rated 7-10 Ondansetron HCl 4 mg 01/29/25 04:14 Ondansetron Inj 4 Mg/2 Ml Vial IV PUSH Q4H PRN Nausea Radiology Results: ITS Impressions MRCP 01/30/25 12:17 IMPRESSION: 1. Expected appearance post recent cholecystectomy with mild stranding at the gallbladder fossa. 2. Otherwise unremarkable MRCP with no biliary ductal dilation or filling defects to suggest choledocholithiasis. Labs Labs: Laboratory Results - last 24 hr 01/31/25 08:58 WBC 4.1 L RBC 4.28 Hgb 12.9 Hct 38.8 MCV 90.7 MCH 30.1 MCHC 33.2 RDW 12.5 Plt Count 152 MPV 11.5 H Sodium 139 Potassium 3.3 L Chloride 104 Carbon Dioxide 28 Anion Gap 7 BUN 8 D Creatinine 0.50 L Estim Creat Clear Calc 138 Estimated GFR > 60 Glucose 94 Calcium 9.3 Total Bilirubin 0.8 AST 141 H ALT 657 H Alkaline Phosphatase 242 H Total Protein 7.0 Albumin 3.9
--- NOTE | 2025-01-31 14:06 | P.PNGI_ITS ---
Progress Note: A&P Assessment and Plan (1) Elevated LFTs: Code(s): R79.89 - Other specified abnormal findings of blood chemistry Status: Acute Assessment and Plan: mrcp reviewed, no complications, no leak, no stones probably elevated lft could have been DILI from recent antibiotic use, bili down to normal, another possibility is stone that already passed she is asymptomatic now tolerating diet, home today (2) Nausea and vomiting in adult: Code(s): R11.2 - Nausea with vomiting, unspecified Status: Acute Assessment and Plan: resolved (3) RUQ pain: Code(s): R10.11 - Right upper quadrant pain Status: Acute Assessment and Plan: resolved (4) Hx of cholecystectomy: Code(s): Z90.49 - Acquired absence of other specified parts of digestive tract Status: Acute Subjective Date/time seen: 01/31/25 14:06 Interval history: asymptomatic, she is going home today Review of Systems Review of Systems: All systems reviewed & are unremarkable except as noted in HPI and below Exam 2 Const: General: alert; No acute distress Orientation/consciousness: patient oriented x3 Limitations: no limitations HENMT: Head: normocephalic and atraumatic Ears: hearing grossly normal bilaterally Eyes: General: appearance normal, both eyes and all related structures Neck: Neck: normal visual inspection, full ROM and supple Chest: Chest palpation & inspection: normal inspection of the chest Resp: Effort & Inspection: normal respiratory effort and able to speak in complete sentences Cardio: Jugular venous distension: no JVD Rate: regular rate Rhythm: regular rhythm GI: Inspection: normal to inspection and incision (Incisions intact with glue) GI Palp: Yes Soft to palpation and No Guarding due to palpation present (GI) Auscultation: normal bowel sounds : General: Yes no CVA tenderness Back/Spine/Pelvis: Back: no CVA tenderness Skin: General skin exam: normal color and dry skin Neuro: General: patient oriented x3, gait normal and moves all extremities Cranial nerves: Yes Equal, round and reactive pupils present Speech: normal speech Extrem: General: normal to inspection Objective Data Vital Signs Vital Signs: Vital Signs - 24 hr 01/30/25 14:15 01/30/25 16:11 01/30/25 22:00 Temperature 98.4 F 98.0 F Pulse Rate 69 86 Respiratory Rate 12 20 Blood Pressure 136/100 H 134/88 123/87 Pulse Oximetry 99 100 Oxygen Delivery 01/31/25 06:00 01/31/25 08:20 Temperature 97.3 F L Pulse Rate 83 Respiratory Rate 20 Blood Pressure 133/87 Pulse Oximetry 98 Oxygen Delivery Room Air Intake/Output Intake/Output: Intake & Output 01/28/25 01/29/25 01/30/25 01/31/25 23:59 23:59 23:59 23:59 Intake Total 4600.0 2200 1663.3 Balance 4600.0 2200 1663.3 Meds/Results Medications: Active Medications Generic Name Dose Route Start Last Admin Trade Name Freq PRN Reason Stop Dose Admin Acetaminophen 650 mg 01/29/25 04:14 01/29/25 15:56 Acetaminophen 325 Mg Tablet PO 650 mg Q4H PRN Administration Mild Pain (1-3) or Fever Hydrocodone Bitart/Acetaminophen 1 tab 01/29/25 04:14 01/29/25 22:34 Hydrocodone/Acetaminophen (*Crx) 5-325 Mg Tablet PO 1 tab Q4H PRN Administration Pain Rated 4-6 Morphine Sulfate 2 mg 01/29/25 04:14 Morphine Sulfate (*Crx) 2 Mg/Ml Inj IV PUSH Q2H PRN Pain Rated 7-10 Ondansetron HCl 4 mg 01/29/25 04:14 Ondansetron Inj 4 Mg/2 Ml Vial IV PUSH Q4H PRN Nausea Radiology Results: ITS Impressions MRCP 01/30/25 12:17 IMPRESSION: 1. Expected appearance post recent cholecystectomy with mild stranding at the gallbladder fossa. 2. Otherwise unremarkable MRCP with no biliary ductal dilation or filling defects to suggest choledocholithiasis. Labs Labs: Laboratory Results - last 24 hr 01/31/25 08:58 WBC 4.1 L RBC 4.28 Hgb 12.9 Hct 38.8 MCV 90.7 MCH 30.1 MCHC 33.2 RDW 12.5 Plt Count 152 MPV 11.5 H Sodium 139 Potassium 3.3 L Chloride 104 Carbon Dioxide 28 Anion Gap 7 BUN 8 D Creatinine 0.50 L Estim Creat Clear Calc 138 Estimated GFR > 60 Glucose 94 Calcium 9.3 Total Bilirubin 0.8 AST 141 H ALT 657 H Alkaline Phosphatase 242 H Total Protein 7.0 Albumin 3.9
--- NOTE | 2025-01-31 14:14 | PM.DS ---
DS: Admitting Diagnosis Discharge Date 01/31/2025 Admitting Diagnosis Abdominal pain status post laparoscopic cholecystectomy DS: Discharge Diagnosis Discharge Diagnosis (1) Elevated LFTs: Code(s): R79.89 - Other specified abnormal findings of blood chemistry Status: Acute (2) RUQ pain: Code(s): R10.11 - Right upper quadrant pain Status: Acute (3) Symptomatic cholelithiasis: Code(s): K80.20 - Calculus of gallbladder without cholecystitis without obstruction Status: Acute DS: Summary Hospital Course Reason for hospitalization: Patient presented to the emergency department on 01/29/2025 with severe upper abdominal pain. She is status post laparoscopic cholecystectomy on 01/23/2025. She was doing well initially postoperatively other than some expected surgical pain. On 01/27/2025 she underwent a root canal and was prescribed oral antibiotics. She took a dose of the amoxicillin and began experiencing extreme abdominal pain and nausea and vomiting afterwards. She was then taken by ambulance to the emergency department. CT and lab work was performed that night. Liver enzymes were mildly elevated, but CT appeared normal for postoperative findings. WBC count was normal. She was discharged from the ED, but then began experiencing worsening abdominal pain again. She had noticed some darker urine. She was taken back to the emergency department and labs were repeated. Her bilirubin had increased from 1-2.9. AST and ALT will are also significantly elevated. No repeat imaging was done. She was admitted for observation for further workup and treatment. Hospital Course: CT was reviewed by general surgeon. This appeared mostly normal for postoperative findings. No fluid collection suggestive of bile leak. GI consulted for possible common bile duct stone due to liver enzyme elevation. GI consulted and included on their differential list choledocholithiasis, bile leak, and also drug-induced liver injury from recent antibiotic use. On 01/30 MRCP was performed and demonstrated no complications, no leak, no stones in the CBD. Therefore, no ERCP necessary. Liver enzymes trending down. Patient symptoms significantly decreased. Diet advanced. Potassium was found to be 3.3 on 01/30 and again on 01/31. This was repleted with oral KCL 20 mEq. WBC 4.1 on 01/30 and 01/31. Patient doing well on 01/31. Minimal abdominal pain. Surgically stable for discharge with follow-up in 2 weeks in outpatient clinic with Dr. Robertson. Status at Discharge Functional status at discharge: independent ambulation Overall status at discharge: patient is back to baseline Time Spent with Patient Time attestation: Total time spent providing and/or coordinating discharge services: Time spent: Less than 30 minutes Exam Const: General: comfortable and no acute distress Neck: Neck: supple and no JVD Resp: Effort & Inspection: normal respiratory effort Cardio: Rate: regular rate GI: Inspection: non-distended GI Palp: Yes Soft to palpation, No Tenderness to palpation present (GI) and No Guarding due to palpation present (GI) Auscultation: normal bowel sounds Other: Incisions clean and dry with glue intact. No signs of infection, skin necrosis, dehiscence Urinary Catheter: Urinary Catheter: patent and draining Skin: General skin exam: normal color Neuro: Sensory Exam: normal sensation Extrem: General: normal to inspection Psych: Mental Status: mental status grossly normal DS: Data Data Completed and Pending Labs on day of discharge: Labs from last 24 hours 01/31/25 08:58 WBC 4.1 L RBC 4.28 Hgb 12.9 Hct 38.8 MCV 90.7 MCH 30.1 MCHC 33.2 RDW 12.5 Plt Count 152 MPV 11.5 H Sodium 139 Potassium 3.3 L Chloride 104 Carbon Dioxide 28 Anion Gap 7 BUN 8 D Creatinine 0.50 L Estim Creat Clear Calc 138 Estimated GFR > 60 Glucose 94 Calcium 9.3 Total Bilirubin 0.8 AST 141 H ALT 657 H Alkaline Phosphatase 242 H Total Protein 7.0 Albumin 3.9 Imaging Radiologist's impression: ITS Impressions MRCP 01/30/25 12:17 IMPRESSION: 1. Expected appearance post recent cholecystectomy with mild stranding at the gallbladder fossa. 2. Otherwise unremarkable MRCP with no biliary ductal dilation or filling defects to suggest choledocholithiasis. Discharge Plan Discharge Attending physician on discharge: Frantz Robertson Consulting providers: Jeremias Gibson Discharging Clinician: Lynn Keene Patient Disposition: Home Activity: may shower Diet: low fat Wound Care Instructions: follow printed instructions Discharge Instructions: Okay to shower. No soaking in bath, pool, or any other body of water for the next 2 weeks or until otherwise instructed by Dr. Robertson. No heavy lifting greater than 10-15 lb for the next 2 weeks. Continue low-fat diet until seen by Dr. Robertson in office. General surgery office will call to schedule this appointment. Call the office if wound becomes increasingly painful or bleeding, vomiting, fever of greater than 101?. Resume previous home medications. Take prescribed oral pain medications for pain as needed. Discontinue amoxicillin. Call dentist and check if they would like a different antibiotic prescribed. Revised October 2018 Patient Instructions: Antibiotic Form, Low Fat Diet (GEN) Patient Language: [place] Stand Alone Forms: General Discharge Information Follow-up/Referrals: Frantz Robertson DO [Physician, General Surgery] - 2 Weeks Referral Note: Office will call patient. Discharge Medications: Continued hydrocodone-acetaminophen 5-325 mg tablet 1 tablet PO Q4H PRN (Reason: pain) Qty: 10 0RF sucralfate 1 gram tablet 1 g PO QID PRN (Reason: reflux) famotidine 20 mg tablet 20 mg PO BID Date of admission: 01/29/25 06:45 Primary Care Provider: CristelJohanna Admitting Provider: Frantz Robertson Attending physician on admission: Frantz Robertson Condition: Stable
== END 2025-01-31 14:30 | disposition home or self-care (01) ==
LOC: ANHED 04:51 → ANH3MED 07:03
PROVIDERS: Internal Medicine Gastroenterology; Admitting Provider Surgery; Emergency Provider Student in an Organized Health Care Education/Training Program; PCP Advanced Practice Midwife; Visit Provider Surgery
DX: R10.13 Epigastric pain (principal); R11.2 Nausea with vomiting, unspecified; G89.18 Other acute postprocedural pain; R79.89 Other specified abnormal findings of blood chemistry; Z90.49 Acquired absence of other specified parts of digestive tract
CPT/HCPCS: 36415; 74183; 76376; 80048; 80053; 80074; 80076; 83605; 83690; 85025; 85027; 96361; 96374; 96375; 99285; A9270; A9577; G0378; G0379; J2270; J2405; J7120